=== PATIENT | female | born 1935 | race Caucasian/White ===

== ENCOUNTER 2019-04-20 10:09 | Inpatient (IN) | payer MEDICARE, BC ==
[2019-04-20] MEDS ORDERED: Sodium Chloride 0.9% 10 ML Syringe FLUSH PRN (10:13)
--- NOTE | 2019-04-20 10:49 | CT ---
[id number] CT/CT Head Stroke Protocol EXAM: NONCONTRAST HEAD CT INDICATION: Stroke protocol, fall. COMPARISON: December 22, 2015. DISCUSSION: There is mild to moderate generalized atrophy. Mild multifocal white matter hypoattenuation is nonspecific, but generally ascribed to chronic small vessel ischemia. No mass effect or midline shift. No acute hemorrhage or extra-axial fluid collection. No acute territorial infarct is identified. A limited look at the orbits and paranasal sinuses is unremarkable. IMPRESSION: 1. No acute findings. Guy Cornelius MD 04/20/19 1048 Thank you for allowing us to participate in the care of your patient.
--- NOTE | 2019-04-20 10:55 | EDM.PDOC ---
ED HPI GENERAL MEDICAL PROBLEM - General Stated Complaint: code green Time Seen by Provider: 04/20/19 10:09 Source of Information: Reports: Patient History Limitations: Reports: No Limitations - History of Present Illness INITIAL COMMENTS - FREE TEXT/NARRATIVE: Pt. presents to ER via EMS. Pt. was found lying prone on the floor of her house this AM. Son states that he was unable to reach his mother by phone this AM. He lives in [place] and was bringing her groceries. Pt. states that she fell this AM. She claims that she was up ambulating and had breakfast this AM, but is confused about how she got to the floor. She was not aware that she was picked up off the floor by EMS. She was made a "code green" by EMS due to confusion and slurred speech. Son states that the patient has been having problems with increased confusion and cognitive delay. Pt. thinks that it is 1995. She also has been confused recently according to son. She said on Tuesday that she was going to work. She has not worked for several years. Son is working on getting her into a alf. Pt. lives alone in a house. She has several dogs and there is a large amount of dog excrement and urine in the floor. Pt. is noted to have what appears to be urine fabian to her face and legs. Pt. complained of neck pain to EMS. Her only other complaint is that of severe pruritus which she has been dealing with for some time. Again, unknown when last known well is. She relates that she was up walking around this AM, but she is quite confused, so this information is possibly inaccurate. She claims she fell a half hour before her son found her. She denies any chest pain. No shortness of breath. No numbness/tingling in extremities. Denies any abdominal pain, nausea or vomiting. No headache. Onset: Today Onset Date: 04/20/19 Location: Reports: Neck Associated Symptoms: Reports: Rash Bilateral Shoulder Pain Score (Numeric/FACES): 4 - Related Data Allergies Allergy/AdvReac Type Severity Reaction Status Date / Time No Known Allergies Allergy Verified 03/15/16 06:38 Home Meds: Home Meds predniSONE [Prednisone] 5 mg DAILY 05/20/15 [History] Aspirin 81 mg PO DAILY 04/20/19 [History] amLODIPine [Norvasc] 5 mg PO DAILY 04/20/19 [History] Past Medical History HEENT History: Reports: Impaired Vision, Other (See Below) Other HEENT History: Wears glasses. Cardiovascular History: Reports: Blood Clots/VTE/DVT, Hypertension, Syncope Respiratory History: Reports: PE Gastrointestinal History: Reports: Chronic Constipation Musculoskeletal History: Reports: Arthritis Hematologic History: Reports: Other (See Below) Other Hematologic History: blood clots to legs - Past Surgical History Musculoskeletal Surgical History: Reports: Hip Replacement, Joint Replacement, Knee Replacement Social & Family History - Family History Family Medical History: Noncontributory - Caffeine Use Caffeine Use: Reports: Coffee, Soda Other Caffeine Use: coke Caffeine Use Comment: Patient states very little ED ROS GENERAL - Review of Systems Review Of Systems: See Below Constitutional: Reports: Weakness, Fatigue HEENT: Reports: No Symptoms Respiratory: Reports: No Symptoms Cardiovascular: Reports: No Symptoms Endocrine: Reports: No Symptoms GI/Abdominal: Reports: No Symptoms : Reports: No Symptoms Musculoskeletal: Reports: Neck Pain Skin: Reports: Pruritis, Rash, Erythema Neurological: Reports: No Symptoms Psychiatric: Reports: No Symptoms Hematologic/Lymphatic: Reports: No Symptoms Immunologic: Reports: No Symptoms ED EXAM, GENERAL - Physical Exam Exam: See Below Exam Limited By: No Limitations General Appearance: Alert, WD/WN, No Apparent Distress Eye Exam: Bilateral Eye: EOMI, Normal Fundi, Normal Inspection, PERRL Nose: Normal Inspection, Normal Mucosa, No Blood Throat/Mouth: Normal Inspection, Normal Lips, Normal Teeth, Normal Gums, Normal Oropharynx, Normal Voice, No Airway Compromise Head: Atraumatic, Normocephalic Neck: Normal Inspection, Supple, Non-Tender, Full Range of Motion Respiratory/Chest: No Respiratory Distress, Lungs Clear, Normal Breath Sounds, No Accessory Muscle Use, Chest Non-Tender Cardiovascular: Normal Peripheral Pulses, Regular Rate, Rhythm, No Edema, No Gallop, No JVD, No Murmur, No Rub Peripheral Pulses: 3+: Posterior Tibial (L), Posterior Tibial (R), 4+: Radial (R ) GI/Abdominal: Normal Bowel Sounds, Soft, Non-Tender, No Organomegaly, No Distention, No Abnormal Bruit, No Mass, Pelvis Stable (Female) Exam: Deferred Rectal (Female) Exam: Deferred Back Exam: Normal Inspection, Full Range of Motion Extremities: Normal Inspection, Normal Range of Motion, Non-Tender, No Pedal Edema, Normal Capillary Refill Neurological: Alert, Oriented, CN II-XII Intact, Normal Cognition, Normal Gait, Normal Reflexes, No Motor/Sensory Deficits Psychiatric: Normal Affect, Normal Mood Skin Exam: Warm, Dry, Intact, Normal Color, Erythema, Other (Appears to be eczema to lower extremities. There is some erythema to R lower extremity. Unknown if this is early cellulitis vs. urine fabian. ) Lymphatic: No Adenopathy EKG INTERPRETATION Rhythm: NSR [place]: Normal P-Wave: Present QRS: Normal ST-T: Normal QT: Normal Course - Vital Signs Last Recorded V/S: Last Vital Signs Temp 36.3 C 04/20/19 10:10 Pulse 86 04/20/19 10:10 Resp 18 04/20/19 10:10 BP 141/90 H 04/20/19 10:10 Pulse Ox 96 04/20/19 10:10 - Orders/Labs/Meds Orders: Active Orders 24 hr Category Date Time Status Patient Status [ADT] Routine ADT 04/20/19 11:48 Ordered EKG Documentation Completion [RC] STAT Care 04/20/19 10:13 Active Valerio Catheter Insertion [Insert Urinary Catheter] [OM. Care 04/20/19 11:15 Ordered PC] Q24H Urinary Catheter Assessment [RC] ASDIRECTED Care 04/20/19 11:05 Active CULTURE BLOOD [BC] Stat Lab 04/20/19 10:32 Received CULTURE BLOOD [BC] Stat Lab 04/20/19 10:47 Received Sodium Chloride 0.9% [Normal Saline] 1,000 ml Med 04/20/19 11:15 Active IV ASDIRECTED Sodium Chloride 0.9% [Saline Flush] Med 04/20/19 10:13 Active 10 ml FLUSH ASDIRECTED PRN Blood Culture x2 Reflex Set [OM.PC] Stat Oth 04/20/19 10:14 Ordered Peripheral IV Insertion Adult [OM.PC] Routine Oth 04/20/19 10:14 Ordered Medication Orders Sodium Chloride (Normal Saline) 1,000 mls @ 150 mls/hr IV ASDIRECTED VAL Last Admin: 04/20/19 11:12 Dose: 150 mls/hr Sodium Chloride (Saline Flush) 10 ml FLUSH ASDIRECTED PRN PRN Reason: Keep Vein Open Labs: Laboratory Tests 04/20/19 04/20/19 04/20/19 Range/Units 10:32 10:32 10:32 WBC 7.1 (4.0-10.0) x10^3/uL RBC 4.14 (4.00-5.50) x10^6/uL Hgb 11.7 L (12.0-16.0) g/dL Hct 35.3 (33.0-47.0) % MCV 85.3 D (78.0-93.0) fL MCH 28.3 (26.0-32.0) pg MCHC 33.1 (32.0-36.0) g/dL RDW Coeff of Sonny 12.8 (10.0-15.0) % Plt Count 413 H D (130-400) x10^3/uL Neut % (Auto) 72.2 (50.0-80.0) % Lymph % (Auto) 10.8 L (25.0-50.0) % [place] % (Auto) 11.9 H (2.0-11.0) % Eos % (Auto) 5.0 H (0.0-4.0) % Baso % (Auto) 0.1 L (0.2-1.2) % PT 10.9 (10.0-12.8) SEC INR 1.0 L (2.0-3.5) Sodium 141 (69-191) mmol/L Potassium 3.5 (1.5-9.9) mmol/L Chloride 104 (54-184) mmol/L Carbon Dioxide 23 (21-32) mmol/L Anion Gap 17.5 (10-20) mmol/L BUN 12 (7-18) mg/dL Creatinine 0.8 (0.55-1.02) mg/dL Est Cr Clr Drug Dosing TNP Estimated GFR (MDRD) > 60 Glucose 96 (74-106) mg/dL Lactic Acid (0.4-2.0) mmol/L Calcium 8.6 (8.5-10.1) mg/dL Corrected Calcium 9.64 (8.5-10.1) mg/dL Phosphorus 3.6 (2.6-4.7) mg/dL Magnesium 1.8 (1.8-2.4) mg/dL Total Bilirubin 0.9 (0.2-1.0) mg/dL AST 46 H (15-37) U/L ALT 21 (14-59) U/L Alkaline Phosphatase 104 (46-116) U/L Creatine Kinase (26-192) U/L POC Troponin I (0.00-0.08) ng/mL C-Reactive Protein 12.1 H (<=0.9) mg/dL Total Protein 5.8 L (6.4-8.2) g/dL Albumin 2.7 L (3.4-5.0) g/dL Globulin 3.1 Albumin/Globulin Ratio 0.87 TSH, Ultra Sensitive 2.955 (0.358-3.74) uIU/mL Urine Color (YELLOW) Urine Appearance (CLEAR) Urine pH (5.0-8.0) Ur Specific [place] Urine Protein (NEGATIVE) mg/dL Urine Glucose (UA) (NEGATIVE) mg/dL Urine Ketones (NEGATIVE) mg/dL Urine Occult Blood (NEGATIVE) Urine Nitrite (NEGATIVE) Urine Bilirubin (NEGATIVE) Urine Urobilinogen (0.2) EU/dL Ur Leukocyte Esterase (NEGATIVE) Urine RBC (NOT SEEN) /HPF Urine WBC (NOT SEEN) /HPF Ur Squamous Epith Cells (NEGATIVE) /HPF Urine Bacteria (NEGATIVE) /HPF Urine Mucus (NEGATIVE) /LPF Urine Yeast (Budding) 04/20/19 04/20/19 04/20/19 Range/Units 10:32 10:32 10:38 WBC (4.0-10.0) x10^3/uL RBC (4.00-5.50) x10^6/uL Hgb (12.0-16.0) g/dL Hct (33.0-47.0) % MCV (78.0-93.0) fL MCH (26.0-32.0) pg MCHC (32.0-36.0) g/dL RDW Coeff of Sonny (10.0-15.0) % Plt Count (130-400) x10^3/uL Neut % (Auto) (50.0-80.0) % Lymph % (Auto) (25.0-50.0) % [place] % (Auto) (2.0-11.0) % Eos % (Auto) (0.0-4.0) % Baso % (Auto) (0.2-1.2) % PT (10.0-12.8) SEC INR (2.0-3.5) Sodium (69-191) mmol/L Potassium (1.5-9.9) mmol/L Chloride (54-184) mmol/L Carbon Dioxide (21-32) mmol/L Anion Gap (10-20) mmol/L BUN (7-18) mg/dL Creatinine (0.55-1.02) mg/dL Est Cr Clr Drug Dosing Estimated GFR (MDRD) Glucose (74-106) mg/dL Lactic Acid 1.3 (0.4-2.0) mmol/L Calcium (8.5-10.1) mg/dL Corrected Calcium (8.5-10.1) mg/dL Phosphorus (2.6-4.7) mg/dL Magnesium (1.8-2.4) mg/dL Total Bilirubin (0.2-1.0) mg/dL AST (15-37) U/L ALT (14-59) U/L Alkaline Phosphatase (46-116) U/L Creatine Kinase 874 H* (26-192) U/L POC Troponin I 0.02 (0.00-0.08) ng/mL C-Reactive Protein (<=0.9) mg/dL Total Protein (6.4-8.2) g/dL Albumin (3.4-5.0) g/dL Globulin Albumin/Globulin Ratio TSH, Ultra Sensitive (0.358-3.74) uIU/mL Urine Color (YELLOW) Urine Appearance (CLEAR) Urine pH (5.0-8.0) Ur Specific [place] Urine Protein (NEGATIVE) mg/dL Urine Glucose (UA) (NEGATIVE) mg/dL Urine Ketones (NEGATIVE) mg/dL Urine Occult Blood (NEGATIVE) Urine Nitrite (NEGATIVE) Urine Bilirubin (NEGATIVE) Urine Urobilinogen (0.2) EU/dL Ur Leukocyte Esterase (NEGATIVE) Urine RBC (NOT SEEN) /HPF Urine WBC (NOT SEEN) /HPF Ur Squamous Epith Cells (NEGATIVE) /HPF Urine Bacteria (NEGATIVE) /HPF Urine Mucus (NEGATIVE) /LPF Urine Yeast (Budding) 04/20/19 Range/Units 11:00 WBC (4.0-10.0) x10^3/uL RBC (4.00-5.50) x10^6/uL Hgb (12.0-16.0) g/dL Hct (33.0-47.0) % MCV (78.0-93.0) fL MCH (26.0-32.0) pg MCHC (32.0-36.0) g/dL RDW Coeff of Sonny (10.0-15.0) % Plt Count (130-400) x10^3/uL Neut % (Auto) (50.0-80.0) % Lymph % (Auto) (25.0-50.0) % [place] % (Auto) (2.0-11.0) % Eos % (Auto) (0.0-4.0) % Baso % (Auto) (0.2-1.2) % PT (10.0-12.8) SEC INR (2.0-3.5) Sodium (69-191) mmol/L Potassium (1.5-9.9) mmol/L Chloride (54-184) mmol/L Carbon Dioxide (21-32) mmol/L Anion Gap (10-20) mmol/L BUN (7-18) mg/dL Creatinine (0.55-1.02) mg/dL Est Cr Clr Drug Dosing Estimated GFR (MDRD) Glucose (74-106) mg/dL Lactic Acid (0.4-2.0) mmol/L Calcium (8.5-10.1) mg/dL Corrected Calcium (8.5-10.1) mg/dL Phosphorus (2.6-4.7) mg/dL Magnesium (1.8-2.4) mg/dL Total Bilirubin (0.2-1.0) mg/dL AST (15-37) U/L ALT (14-59) U/L Alkaline Phosphatase (46-116) U/L Creatine Kinase (26-192) U/L POC Troponin I (0.00-0.08) ng/mL C-Reactive Protein (<=0.9) mg/dL Total Protein (6.4-8.2) g/dL Albumin (3.4-5.0) g/dL Globulin Albumin/Globulin Ratio TSH, Ultra Sensitive (0.358-3.74) uIU/mL Urine Color Dark yellow H (YELLOW) Urine Appearance Clear (CLEAR) Urine pH 5.5 (5.0-8.0) Ur Specific [place] 1.025 Urine Protein Trace H (NEGATIVE) mg/dL Urine Glucose (UA) Negative (NEGATIVE) mg/dL Urine Ketones 40 H (NEGATIVE) mg/dL Urine Occult Blood Negative (NEGATIVE) Urine Nitrite Negative (NEGATIVE) Urine Bilirubin Small H (NEGATIVE) Urine Urobilinogen 2.0 H (0.2) EU/dL Ur Leukocyte Esterase Negative (NEGATIVE) Urine RBC 0-5 (NOT SEEN) /HPF Urine WBC 0-5 (NOT SEEN) /HPF Ur Squamous Epith Cells Rare (NEGATIVE) /HPF Urine Bacteria Not seen (NEGATIVE) /HPF Urine Mucus Rare H (NEGATIVE) /LPF Urine Yeast (Budding) Few Meds: Medications Generic Name Dose Route Start Last Admin Trade Name Freq PRN Reason Stop Dose Admin Sodium Chloride 1,000 mls @ 150 mls/hr 04/20/19 11:15 04/20/19 11:12 Normal Saline IV 150 mls/hr ASDIRECTED VAL Administration Sodium Chloride 10 ml 04/20/19 10:13 Saline Flush FLUSH ASDIRECTED PRN Keep Vein Open Discontinued Medications Generic Name Dose Route Start Last Admin Trade Name Freq PRN Reason Stop Dose Admin Cefazolin Sodium 1 gm 04/20/19 11:26 Ancef IVPUSH 04/20/19 11:27 ONETIME ONE - Radiology Interpretation Free Text/Narrative:: CT brain/c-spine are negative Chest x-ray is negative Departure - Departure Time of Disposition: 11:52 Disposition: Admitted As Inpatient 67 Clinical Impression: Cellulitis, Rhabdomyolysis, Confusion - Discharge Information Referrals: Senia Silvestre, [Primary Care Provider] - - My Orders Last 24 Hours: My Active Orders 04/20/19 10:13 EKG Documentation Completion [RC] STAT Sodium Chloride 0.9% [Saline Flush] 10 ml FLUSH ASDIRECTED PRN 04/20/19 10:14 Blood Culture x2 Reflex Set [OM.PC] Stat Peripheral IV Insertion Adult [OM.PC] Routine 04/20/19 10:32 CULTURE BLOOD [BC] Stat 04/20/19 10:47 CULTURE BLOOD [BC] Stat 04/20/19 11:05 Urinary Catheter Assessment [RC] ASDIRECTED 04/20/19 11:15 Valerio Catheter Insertion [Insert Urinary Catheter] [OM.PC] Q24H Sodium Chloride 0.9% [Normal Saline] 1,000 ml IV ASDIRECTED 04/20/19 11:48 Patient Status [ADT] Routine - Assessment/Plan Last 24 Hours: My Active Orders 04/20/19 10:13 EKG Documentation Completion [RC] STAT Sodium Chloride 0.9% [Saline Flush] 10 ml FLUSH ASDIRECTED PRN 04/20/19 10:14 Blood Culture x2 Reflex Set [OM.PC] Stat Peripheral IV Insertion Adult [OM.PC] Routine 04/20/19 10:32 CULTURE BLOOD [BC] Stat 04/20/19 10:47 CULTURE BLOOD [BC] Stat 04/20/19 11:05 Urinary Catheter Assessment [RC] ASDIRECTED 04/20/19 11:15 Valerio Catheter Insertion [Insert Urinary Catheter] [OM.PC] Q24H Sodium Chloride 0.9% [Normal Saline] 1,000 ml IV ASDIRECTED 04/20/19 11:48 Patient Status [ADT] Routine Plan: Pt. will be admitted acutely. She was given ancef 1 gm IV for cellulitis. She has an elevated CPK. She was started on Normal Saline at 150ml/hr. I spoke with Dr. Silvestre/Jonathan Nesbitt. Jonathan will be admitting the patient. Pt. is DNR/DNI.
--- NOTE | 2019-04-20 10:59 | CT ---
[id number] CT/CT Cervical Spine WO IV EXAM: NONCONTRAST CERVICAL SPINE CT INDICATION: FALL. COMPARISON: None. DISCUSSION: 3 mm spondylolisthesis C4-C5 C7-T1 and T2-T3. No fracture or suspicious osseous lesion is identified. There is at least moderate degenerative disc disease and facet arthropathy throughout the cervical spine with significant central stenosis suggested at C4-C5 which could be further evaluated with CT. IMPRESSION: 1. No evidence of acute cervical spine fracture or subluxation. Guy Cornelius MD 04/20/19 1058 Thank you for allowing us to participate in the care of your patient.
--- NOTE | 2019-04-20 11:11 | CR ---
[id number] RAD/RAD Chest PA or AP 1V EXAM: RAD Chest PA or AP 1V INDICATION: CONFUSION, WEAKNESS. COMPARISON: None. DISCUSSION: Cardiomediastinal silhouette is normal in size and contour. COPD. No infiltrate, effusion, pneumothorax, or edema. IMPRESSION: No acute findings. Jean Fenton MD 04/20/19 4060 Thank you for allowing us to participate in the care of your patient.
[2019-04-20] MEDS: Sodium Chloride 0.9% 1,000 ML IV SCH ×2 (11:12→17:56)
[2019-04-20 11:17] LABS: CHLORIDE,CL 104 mmol/L (54-184); SODIUM,NA 141 mmol/L (69-191)
[2019-04-20 11:18] LABS: ANION GAP 17.5 mmol/L (10-20)
[2019-04-20] MEDS ORDERED: ceFAZolin 1 GM Vial IVPUSH ONE (11:26)
[2019-04-20] MEDS ORDERED: Acetaminophen 325 MG Tab PO PRN (13:14)
[2019-04-20] MEDS ORDERED: methylPREDNISolone Sodium Succinate 125 MG/2 ML SDV IVPUSH ONE (13:30)
--- NOTE | 2019-04-20 13:41 | PCM.HP.2 ---
H&P History of Present Illness - General Date of Service: 04/20/19 Admit Problem/Dx: Admission Diagnosis/Problem Admission Diagnosis/Problem Cellulitis, Right Lower Extremity Rhabdo Dehydration Weakness Deconditioning HTN RA Source of Information: EMS Notes Reviewed, Old Records, RN, RN Notes Reviewed History Limitations: Reports: Altered Mental Status (confusion) - History of Present Illness Initial Comments - Free Text/Narative: This is a 83-year-old female patient that was brought to the emergency room at [facility] in [place] per EMS after she was found laying on her floor in her home by her son. The patient does live alone. The patient apparently was laying in urine and dog feces. It is unknown how long the patient had been laying on the floor. The patient has denied falling. The patient states that she did not hit her head or lose any consciousness. The patient's initial workup in the emergency room showed an elevated CK of over 800 as well as significant cellulitis to the right lower extremity. The patient was given a gram of Ancef in the emergency room and started on IV fluids. The patient is a poor historian due to her confusion and undiagnosed dementia. The patient has a past medical history significant for hypertension and rheumatoid arthritis but she is currently being treated for. The patient is followed in clinic at [facility]. Her last visit with her PCP was December 28, 2018. Onset of Symptoms: Reports: Unknown/Unsure Bilateral Shoulder Pain Score (Numeric/FACES): 4 - Related Data Allergies/Adverse Reactions: Allergies Allergy/AdvReac Type Severity Reaction Status Date / Time No Known Allergies Allergy Verified 04/20/19 12:30 Home Medications: Home Meds predniSONE [Prednisone] 5 mg DAILY 05/20/15 [History] Aspirin 81 mg PO DAILY 04/20/19 [History] amLODIPine [Norvasc] 5 mg PO DAILY 04/20/19 [History] Past Medical History HEENT History: Reports: Impaired Vision, Other (See Below) Other HEENT History: Wears glasses. 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: Musculoskeletal History: Reports: Arthritis Hematologic History: Reports: Other (See Below) Other Hematologic History: blood clots to legs - Infectious Disease History Infectious Disease History: Reports: MRSA, Shingles - Past Surgical History Musculoskeletal Surgical History: Reports: Hip Replacement, Joint Replacement, Knee Replacement Social & Family History - Family History Family Medical History: Noncontributory - Tobacco Use Smoking Status *Q: Never Smoker Second Hand Smoke Exposure: No - Caffeine Use Caffeine Use: Reports: Coffee Other Caffeine Use: coke Caffeine Use Comment: Patient states very little - Recreational Drug Use Recreational Drug Use: No H&P Review of Systems - Review of Systems: Review Of Systems: Unable To Obtain (Patient responds "no" to any question) Free Text/Narrative: Part of the review of systems is obtained from the nursing staff. The nursing staff state that the patient has not been complaining of any pain. The patient has not had a fever upon arrival and her vital signs have remained stable. The nursing staff state the patient has mentioned some itching to the lower right extremity. Exam - Exam Exam: See Below - Vital Signs Vital Signs: Last Vital Signs Temp 97.4 F 04/20/19 10:10 Pulse 82 04/20/19 11:05 Resp 16 04/20/19 11:05 BP 143/89 H 04/20/19 11:05 Pulse Ox 96 04/20/19 11:05 Weight: 143 lb 6 oz - Exam Quality Assessment: Urinary Catheter, DVT Prophylaxis, Skin Breakdown General: Alert, Cooperative. No: Oriented Lungs: Clear to Auscultation, Normal Respiratory Effort Cardiovascular: Regular Rate, Regular Rhythm GI/Abdominal Exam: Soft, Non-Tender, Abnormal Bowel Sounds (Hypoactive) Extremities: Pedal Edema, Slow Capillary Refill, Limited Range of Motion, Increased Warmth, Redness, Other (+2 dependent pitting edema RLE; cellulitis has a general ooze with blistering from the right knee down to mid right foot) Peripheral Pulses: 2+: Radial (L), Radial (R) Skin: Warm, Wound Neuro Extensive - Mental Status: Alert. No: Oriented x3 - Patient Data Lab Results Last 24 hrs: Laboratory Results - last 24 hr 04/20/19 04/20/19 04/20/19 Range/Units 10:32 10:32 10:32 WBC 7.1 (4.0-10.0) x10^3/uL RBC 4.14 (4.00-5.50) x10^6/uL Hgb 11.7 L (12.0-16.0) g/dL Hct 35.3 (33.0-47.0) % MCV 85.3 D (78.0-93.0) fL MCH 28.3 (26.0-32.0) pg MCHC 33.1 (32.0-36.0) g/dL RDW Coeff of Sonny 12.8 (10.0-15.0) % Plt Count 413 H D (130-400) x10^3/uL Neut % (Auto) 72.2 (50.0-80.0) % Lymph % (Auto) 10.8 L (25.0-50.0) % [place] % (Auto) 11.9 H (2.0-11.0) % Eos % (Auto) 5.0 H (0.0-4.0) % Baso % (Auto) 0.1 L (0.2-1.2) % PT 10.9 (10.0-12.8) SEC INR 1.0 L (2.0-3.5) Sodium 141 (69-191) mmol/L Potassium 3.5 (1.5-9.9) mmol/L Chloride 104 (54-184) mmol/L Carbon Dioxide 23 (21-32) mmol/L Anion Gap 17.5 (10-20) mmol/L BUN 12 (7-18) mg/dL Creatinine 0.8 (0.55-1.02) mg/dL Est Cr Clr Drug Dosing TNP Estimated GFR (MDRD) > 60 Glucose 96 (74-106) mg/dL Lactic Acid (0.4-2.0) mmol/L Calcium 8.6 (8.5-10.1) mg/dL Corrected Calcium 9.64 (8.5-10.1) mg/dL Phosphorus 3.6 (2.6-4.7) mg/dL Magnesium 1.8 (1.8-2.4) mg/dL Total Bilirubin 0.9 (0.2-1.0) mg/dL AST 46 H (15-37) U/L ALT 21 (14-59) U/L Alkaline Phosphatase 104 (46-116) U/L Creatine Kinase (26-192) U/L POC Troponin I (0.00-0.08) ng/mL C-Reactive Protein 12.1 H (<=0.9) mg/dL Total Protein 5.8 L (6.4-8.2) g/dL Albumin 2.7 L (3.4-5.0) g/dL Globulin 3.1 Albumin/Globulin Ratio 0.87 TSH, Ultra Sensitive 2.955 (0.358-3.74) uIU/mL Urine Color (YELLOW) Urine Appearance (CLEAR) Urine pH (5.0-8.0) Ur Specific [place] Urine Protein (NEGATIVE) mg/dL Urine Glucose (UA) (NEGATIVE) mg/dL Urine Ketones (NEGATIVE) mg/dL Urine Occult Blood (NEGATIVE) Urine Nitrite (NEGATIVE) Urine Bilirubin (NEGATIVE) Urine Urobilinogen (0.2) EU/dL Ur Leukocyte Esterase (NEGATIVE) Urine RBC (NOT SEEN) /HPF Urine WBC (NOT SEEN) /HPF Ur Squamous Epith Cells (NEGATIVE) /HPF Urine Bacteria (NEGATIVE) /HPF Urine Mucus (NEGATIVE) /LPF Urine Yeast (Budding) 04/20/19 04/20/19 04/20/19 Range/Units 10:32 10:32 10:38 WBC (4.0-10.0) x10^3/uL RBC (4.00-5.50) x10^6/uL Hgb (12.0-16.0) g/dL Hct (33.0-47.0) % MCV (78.0-93.0) fL MCH (26.0-32.0) pg MCHC (32.0-36.0) g/dL RDW Coeff of Sonny (10.0-15.0) % Plt Count (130-400) x10^3/uL Neut % (Auto) (50.0-80.0) % Lymph % (Auto) (25.0-50.0) % [place] % (Auto) (2.0-11.0) % Eos % (Auto) (0.0-4.0) % Baso % (Auto) (0.2-1.2) % PT (10.0-12.8) SEC INR (2.0-3.5) Sodium (69-191) mmol/L Potassium (1.5-9.9) mmol/L Chloride (54-184) mmol/L Carbon Dioxide (21-32) mmol/L Anion Gap (10-20) mmol/L BUN (7-18) mg/dL Creatinine (0.55-1.02) mg/dL Est Cr Clr Drug Dosing Estimated GFR (MDRD) Glucose (74-106) mg/dL Lactic Acid 1.3 (0.4-2.0) mmol/L Calcium (8.5-10.1) mg/dL Corrected Calcium (8.5-10.1) mg/dL Phosphorus (2.6-4.7) mg/dL Magnesium (1.8-2.4) mg/dL Total Bilirubin (0.2-1.0) mg/dL AST (15-37) U/L ALT (14-59) U/L Alkaline Phosphatase (46-116) U/L Creatine Kinase 874 H* (26-192) U/L POC Troponin I 0.02 (0.00-0.08) ng/mL C-Reactive Protein (<=0.9) mg/dL Total Protein (6.4-8.2) g/dL Albumin (3.4-5.0) g/dL Globulin Albumin/Globulin Ratio TSH, Ultra Sensitive (0.358-3.74) uIU/mL Urine Color (YELLOW) Urine Appearance (CLEAR) Urine pH (5.0-8.0) Ur Specific [place] Urine Protein (NEGATIVE) mg/dL Urine Glucose (UA) (NEGATIVE) mg/dL Urine Ketones (NEGATIVE) mg/dL Urine Occult Blood (NEGATIVE) Urine Nitrite (NEGATIVE) Urine Bilirubin (NEGATIVE) Urine Urobilinogen (0.2) EU/dL Ur Leukocyte Esterase (NEGATIVE) Urine RBC (NOT SEEN) /HPF Urine WBC (NOT SEEN) /HPF Ur Squamous Epith Cells (NEGATIVE) /HPF Urine Bacteria (NEGATIVE) /HPF Urine Mucus (NEGATIVE) /LPF Urine Yeast (Budding) 04/20/19 Range/Units 11:00 WBC (4.0-10.0) x10^3/uL RBC (4.00-5.50) x10^6/uL Hgb (12.0-16.0) g/dL Hct (33.0-47.0) % MCV (78.0-93.0) fL MCH (26.0-32.0) pg MCHC (32.0-36.0) g/dL RDW Coeff of Sonny (10.0-15.0) % Plt Count (130-400) x10^3/uL Neut % (Auto) (50.0-80.0) % Lymph % (Auto) (25.0-50.0) % [place] % (Auto) (2.0-11.0) % Eos % (Auto) (0.0-4.0) % Baso % (Auto) (0.2-1.2) % PT (10.0-12.8) SEC INR (2.0-3.5) Sodium (69-191) mmol/L Potassium (1.5-9.9) mmol/L Chloride (54-184) mmol/L Carbon Dioxide (21-32) mmol/L Anion Gap (10-20) mmol/L BUN (7-18) mg/dL Creatinine (0.55-1.02) mg/dL Est Cr Clr Drug Dosing Estimated GFR (MDRD) Glucose (74-106) mg/dL Lactic Acid (0.4-2.0) mmol/L Calcium (8.5-10.1) mg/dL Corrected Calcium (8.5-10.1) mg/dL Phosphorus (2.6-4.7) mg/dL Magnesium (1.8-2.4) mg/dL Total Bilirubin (0.2-1.0) mg/dL AST (15-37) U/L ALT (14-59) U/L Alkaline Phosphatase (46-116) U/L Creatine Kinase (26-192) U/L POC Troponin I (0.00-0.08) ng/mL C-Reactive Protein (<=0.9) mg/dL Total Protein (6.4-8.2) g/dL Albumin (3.4-5.0) g/dL Globulin Albumin/Globulin Ratio TSH, Ultra Sensitive (0.358-3.74) uIU/mL Urine Color Dark yellow H (YELLOW) Urine Appearance Clear (CLEAR) Urine pH 5.5 (5.0-8.0) Ur Specific [place] 1.025 Urine Protein Trace H (NEGATIVE) mg/dL Urine Glucose (UA) Negative (NEGATIVE) mg/dL Urine Ketones 40 H (NEGATIVE) mg/dL Urine Occult Blood Negative (NEGATIVE) Urine Nitrite Negative (NEGATIVE) Urine Bilirubin Small H (NEGATIVE) Urine Urobilinogen 2.0 H (0.2) EU/dL Ur Leukocyte Esterase Negative (NEGATIVE) Urine RBC 0-5 (NOT SEEN) /HPF Urine WBC 0-5 (NOT SEEN) /HPF Ur Squamous Epith Cells Rare (NEGATIVE) /HPF Urine Bacteria Not seen (NEGATIVE) /HPF Urine Mucus Rare H (NEGATIVE) /LPF Urine Yeast (Budding) Few Result Diagrams: 04/20/19 10:32 04/20/19 10:32 *Q Meaningful Use (ADM) - VTE *Q VTE Mechanical Contraindications *Q: At Risk for Falls - Problem List (1) Cellulitis SNOMED Code(s): 800698359 ICD Code: L03.90 - CELLULITIS, UNSPECIFIED Status: Acute Priority: High Current Visit: Yes Onset Date: ~04/20/19 Qualifiers: Site of cellulitis: extremity Site of cellulitis of extremity: lower extremity Laterality: right Qualified Code(s): L03.115 - Cellulitis of right lower limb (2) Confusion SNOMED Code(s): 816422317 ICD Code: R41.0 - DISORIENTATION, UNSPECIFIED Status: Chronic Priority: Medium Current Visit: Yes (3) Rhabdomyolysis SNOMED Code(s): 292292614 ICD Code: M62.82 - RHABDOMYOLYSIS Status: Acute Priority: High Current Visit: Yes Qualifiers: Rhabdomyolysis type: non-traumatic Qualified Code(s): M62.82 - Rhabdomyolysis (4) Essential hypertension SNOMED Code(s): 03320256 ICD Code: I10 - ESSENTIAL (PRIMARY) HYPERTENSION Status: Chronic Priority : Medium Current Visit: No (5) Rheumatoid arthritis SNOMED Code(s): 06856850 ICD Code: M06.9 - RHEUMATOID ARTHRITIS, UNSPECIFIED Status: Chronic Priority: Medium Current Visit: No Qualifiers: Rheumatoid arthritis location: multiple sites Rheumatoid factor presence: with rheumatoid factor Qualified Code(s): M05.79 - Rheumatoid arthritis with rheumatoid factor of multiple sites without organ or systems involvement (6) History of DVT (deep vein thrombosis) SNOMED Code(s): 095356908 ICD Code: Z86.718 - PERSONAL HISTORY OF OTHER VENOUS THROMBOSIS AND EMBOLISM Status: Chronic Priority: Low Current Visit: No (7) History of shingles SNOMED Code(s): 681441578517991 ICD Code: Z86.19 - PERSONAL HISTORY OF OTHER INFECTIOUS AND PARASITIC DISEASES Status: Chronic Priority: Low Current Visit: No (8) Osteopenia SNOMED Code(s): 912051176 ICD Code: M85.80 - OTH DISRD OF BONE DENSITY AND STRUCTURE, UNSPECIFIED SITE Status: Chronic Priority: Low Current Visit: No Qualifiers: Osteopenia location: multiple sites Qualified Code(s): M85.89 - Other specified disorders of bone density and structure, multiple sites (9) Cognitive impairment SNOMED Code(s): 619442956 ICD Code: R41.89 - OTH SYMPTOMS AND SIGNS W COGNITIVE FUNCTIONS AND AWARENESS Status: Chronic Priority: Medium Current Visit: Yes Problem List Initiated/Reviewed/Updated: Yes Orders Last 24hrs: Active Orders 24 hr Category Date Time Status Patient Status [ADT] Routine ADT 04/20/19 13:14 Active Ambulate [RC] Care 04/20/19 13:14 Active Valerio Catheter Insertion [Insert Urinary Catheter] [OM. Care 04/20/19 11:15 Ordered PC] Q24H Influenza Vaccine Charge [RC] .DISCHARGE Care 04/20/19 12:28 Active Intake and Output [RC] Care 04/20/19 12:32 Active Oxygen Therapy [RC] .PRN Care 04/20/19 12:32 Inactive Oxygen Therapy [RC] PRN Care 04/20/19 13:14 Active Up With Assistance [RC] Care 04/20/19 12:32 Active Urinary Catheter Assessment [RC] Care 04/20/19 11:05 Active Vital Signs [RC] 06,10,14,18,22,02 Care 04/20/19 12:32 Inactive Vital Signs [RC] 06,10,14,18,22,02 Care 04/20/19 13:14 Active Consult to Case Management/Breaker Operator [CONS] Cons 04/20/19 13:14 Active Routine OT Evaluation and Treatment [CONS] Routine Cons 04/20/19 13:14 Active PT Evaluation and Treatment [CONS] Routine Cons 04/20/19 13:14 Active Heart Healthy Diet [DIET] Diet 04/20/19 Breakfast Active BASIC METABOLIC PANEL,BMP [CHEM] Routine Lab 04/21/19 05:11 Ordered CBC WITH AUTO DIFF [HEME] Routine Lab 04/21/19 05:11 Ordered CREATINE KINASE,CK [CHEM] Routine Lab 04/21/19 05:11 Ordered CULTURE BLOOD [BC] Stat Lab 04/20/19 10:32 Received CULTURE BLOOD [BC] Stat Lab 04/20/19 10:47 Received MAGNESIUM [CHEM] Routine Lab 04/21/19 05:11 Ordered VANCOMYCIN TROUGH [CHEM] Timed Lab 04/23/19 13:30 Ordered Acetaminophen [Tylenol] Med 04/20/19 13:14 Active 650 mg PO Q4H PRN Aspirin Med 04/21/19 08:00 Active 81 mg PO DAILY Enoxaparin [Lovenox] Med 04/20/19 13:30 Active 40 mg SUBCUT DAILY Mineral Oil/Petrolatum,White [Minerin Creme] Med 04/20/19 13:19 Active 0 gm TOP BID PRN Pharmacy to Dose - Vancomycin Med 04/20/19 13:30 Pending 1 dose .XX ASDIRECTED Sodium Chloride 0.9% [Normal Saline] 1,000 ml Med 04/20/19 11:15 Active IV ASDIRECTED Sodium Chloride 0.9% [Saline Flush] Med 04/20/19 10:13 Active 10 ml FLUSH ASDIRECTED PRN Vancomycin 1 gm Med 04/20/19 14:00 Active Sodium Chloride 0.9% [Normal Saline (AdvBag)] 250 ml IV Q24H amLODIPine [Norvasc] Med 04/21/19 08:00 Active 5 mg PO DAILY methylPREDNISolone Sod Succ [Solu-MEDROL] Med 04/20/19 13:30 Once 125 mg IVPUSH ONETIME ONE predniSONE Med 04/21/19 08:00 Active 5 mg PO DAILY Blood Culture x2 Reflex Set [OM.PC] Stat Oth 04/20/19 10:14 Ordered Peripheral IV Insertion Adult [OM.PC] Routine Oth 04/20/19 10:14 Ordered Code Status [Resuscitation Status] Routine Resus Stat 04/20/19 12:32 Ordered Medication Orders Acetaminophen (Tylenol) 650 mg PO Q4H PRN PRN Reason: Pain (Mild 1-3)/fever Amlodipine Besylate (Norvasc) 5 mg PO DAILY VAL Aspirin (Aspirin) 81 mg PO DAILY VAL Enoxaparin Sodium (Lovenox) 40 mg SUBCUT DAILY VAL Sodium Chloride (Normal Saline) 1,000 mls @ 150 mls/hr IV ASDIRECTED VAL Last Admin: 04/20/19 11:12 Dose: 150 mls/hr Vancomycin HCl 1 gm/ Sodium (Chloride) 250 mls @ 250 mls/hr IV Q24H [facility] Methylprednisolone Sodium Succinate (Solu-Medrol) 125 mg IVPUSH ONETIME ONE Stop: 04/20/19 13:31 Mineral Oil/White Petrolatum (Minerin Creme) 0 gm TOP BID PRN PRN Reason: Dryness Prednisone (Prednisone) 5 mg PO DAILY [facility] Sodium Chloride (Saline Flush) 10 ml FLUSH ASDIRECTED PRN PRN Reason: Keep Vein Open Vancomycin HCl (Pharmacy To Dose - Vancomycin) 1 dose .XX ASDIRECTED [facility] Assessment/Plan Comment:: 1. Cellulitis of the right lower extremity 2. Rhabdomyolysis 3. Dehydration 4. Rheumatoid arthritis 5. Essential hypertension 6. History of DVT 7. History of shingles 8. Osteopenia 9. Cognitive impairment PLAN: Patient will be admitted to the acute care floor at [facility]. The patient will be started on vancomycin IV to be adjusted by pharmacy. We will start the patient on Lovenox also to be adjusted by pharmacy. We'll continue with normal saline at 125 mL per hour. Continue to monitor LIZZETH. We will have physical and occupational therapy see the patient. We have also consult case management for possible [place] [facility] placement. The patient is a code level II. The patient does not wish to be transferred to a high-level care should the need arise. I suspect the patient will be admitted for at least 3-4 days. Would like the right lower extremity to be open to air and keep elevated. Do not use any YVONNE hose on the right lower extremity. Valerio catheter will remain in place for strict I&O. We'll recheck labs in the a.m. NOTE: This patient was seen and examined by me as an [facility] provider - Mortality Measure Prognosis:: Good
[2019-04-20] MEDS: Enoxaparin 40 MG/0.4 ML Syringe SUBCUT SCH (14:06)
[2019-04-20] MEDS: Mineral Oil/Petrolatum,White Crm 454 GM Jar TOP PRN (17:56)
[2019-04-21] MEDS: Sodium Chloride 0.9% 1,000 ML IV SCH ×4 (00:32→21:01)
[2019-04-21] MEDS: amLODIPine 5 MG Tab PO SCH (07:19)
[2019-04-21] MEDS: Mineral Oil/Petrolatum,White Crm 454 GM Jar TOP PRN (07:19)
[2019-04-21] MEDS: Aspirin 81 MG Tab.Chew PO SCH (07:19)
[2019-04-21] MEDS: Enoxaparin 40 MG/0.4 ML Syringe SUBCUT SCH (07:19)
[2019-04-21] MEDS: predniSONE 5 MG Tab PO SCH (07:20)
[2019-04-21 07:56] LABS: CHLORIDE,CL 110 mmol/L (54-184); SODIUM,NA 144 mmol/L (69-191)
[2019-04-21 08:14] LABS: ANION GAP 19.7 mmol/L (10-20)
--- NOTE | 2019-04-21 11:37 | PCM.PN ---
- General Info Date of Service: 04/21/19 Admission Dx/Problem (Free Text): Admission Diagnosis/Problem Admission Diagnosis/Problem Cellulitis, Right Lower Extremity Rhabdo Dehydration Weakness Deconditioning HTN RA Subjective Update: Patient is pleasantly confused. She offers no specific complaints. She has a long-standing history of itching that family states has been a problem since childhood. Functional Status: Reports: Pain Controlled, Tolerating Diet, Urinating. Denies : Ambulating, New Symptoms Pain Score: 0 - Review of Systems General: Reports: Weakness. Denies: Fever, Chills Pulmonary: Denies: Shortness of Breath, Cough Cardiovascular: Denies: Chest Pain, Palpitations Gastrointestinal: Denies: Abdominal Pain, Nausea, Vomiting Skin: Reports: Pruritis Neurological: Reports: No Symptoms - Patient Data Vitals - Most Recent: Last Vital Signs Temp 97.7 F 04/21/19 05:08 Pulse 100 04/21/19 05:08 Resp 17 04/21/19 05:08 BP 110/63 04/21/19 07:19 Pulse Ox 93 L 04/21/19 05:08 Weight - Most Recent: 143 lb 6 oz I&O - Last 24 Hours: Intake & Output 04/20/19 04/21/19 04/21/19 22:59 06:59 14:59 Intake Total 850 2365 Output Total 400 300 Balance 450 2065 Lab Results Last 24 Hours: Laboratory Results - last 24 hr 04/21/19 04/21/19 Range/Units 07:30 07:30 WBC 7.5 (4.0-10.0) x10^3/uL RBC 3.60 L (4.00-5.50) x10^6/uL Hgb 10.1 L D (12.0-16.0) g/dL Hct 31.5 L (33.0-47.0) % MCV 87.5 (78.0-93.0) fL MCH 28.1 (26.0-32.0) pg MCHC 32.1 (32.0-36.0) g/dL RDW Coeff of Sonny 13.2 (10.0-15.0) % Plt Count 397 (130-400) x10^3/uL Neut % (Auto) 84.1 H (50.0-80.0) % Lymph % (Auto) 12.3 L (25.0-50.0) % Bell % (Auto) 3.5 (2.0-11.0) % Eos % (Auto) 0.0 (0.0-4.0) % Baso % (Auto) 0.1 L (0.2-1.2) % Sodium 144 (69-191) mmol/L Potassium 3.7 (1.5-9.9) mmol/L Chloride 110 H (54-184) mmol/L Carbon Dioxide 18 L (21-32) mmol/L Anion Gap 19.7 (10-20) mmol/L BUN 13 (7-18) mg/dL Creatinine 0.8 (0.55-1.02) mg/dL Est Cr Clr Drug Dosing 48.79 mL/min Estimated GFR (MDRD) > 60 Glucose 93 (74-106) mg/dL Calcium 7.5 L (8.5-10.1) mg/dL Magnesium 1.9 (1.8-2.4) mg/dL Creatine Kinase 292 H* (26-192) U/L Ady Results Last 24 Hours: Microbiology 04/20/19 10:47 Aerobic Blood Culture - Preliminary Blood - Venous - Lab Draw NO GROWTH AFTER 1 DAY Anaerobic Blood Culture - Preliminary NO GROWTH AFTER 1 DAY 04/20/19 10:32 Aerobic Blood Culture - Preliminary Blood - Venous NO GROWTH AFTER 1 DAY Anaerobic Blood Culture - Preliminary NO GROWTH AFTER 1 DAY Med Orders - Current: Current Medications Acetaminophen (Tylenol) 650 mg PO Q4H PRN PRN Reason: Pain (Mild 1-3)/fever Last Admin: 04/21/19 07:20 Dose: 650 mg Amlodipine Besylate (Norvasc) 5 mg PO DAILY [facility] Last Admin: 04/21/19 07:19 Dose: 5 mg Aspirin (Aspirin) 81 mg PO DAILY [facility] Last Admin: 04/21/19 07:19 Dose: 81 mg Enoxaparin Sodium (Lovenox) 40 mg SUBCUT DAILY [facility] Last Admin: 04/21/19 07:19 Dose: 40 mg Sodium Chloride (Normal Saline) 1,000 mls @ 150 mls/hr IV ASDIRECTED [facility] Last Admin: 04/21/19 07:20 Dose: 150 mls/hr Vancomycin HCl 1 gm/ Sodium (Chloride) 250 mls @ 250 mls/hr IV Q24H [facility] Last Admin: 04/20/19 14:06 Dose: 250 mls/hr Influenza Virus Vaccine (Pharmacy To Dose - Influenza Vaccine) 1 each IM ONETIME ONE Stop: 04/20/19 13:38 Mineral Oil/White Petrolatum (Minerin Creme) 0 gm TOP BID PRN PRN Reason: Dryness Last Admin: 04/21/19 07:19 Dose: 1 applic Prednisone (Prednisone) 5 mg PO DAILY [facility] Last Admin: 04/21/19 07:20 Dose: 5 mg Sodium Chloride (Saline Flush) 10 ml FLUSH ASDIRECTED PRN PRN Reason: Keep Vein Open Vancomycin HCl (Pharmacy To Dose - Vancomycin) 1 dose .XX ASDIRECTED [facility] Discontinued Medications Cefazolin Sodium (Ancef) 1 gm IVPUSH ONETIME ONE Stop: 04/20/19 11:27 Last Admin: 04/20/19 11:59 Dose: 1 gm Influenza Virus Vaccine (Fluzone High-Dose 2018-20 Syringe) 180 mcg IM .ONCE ONE Stop: 04/20/19 12:46 Methylprednisolone Sodium Succinate (Solu-Medrol) 125 mg IVPUSH ONETIME ONE Stop: 04/20/19 13:31 Last Admin: 04/20/19 14:06 Dose: 125 mg Pharmacy Consult (Consult To Pharmacy) 1 each .XX ASDIRECTED [facility] - Exam Quality Assessment: Urine Catheter, DVT Prophylaxis, Skin Breakdown General: Alert, Cooperative, No Acute Distress. No: Oriented Lungs: Clear to Auscultation, Normal Respiratory Effort Cardiovascular: Regular Rate, Regular Rhythm GI/Abdominal Exam: Normal Bowel Sounds, Soft, Non-Tender Extremities: Pedal Edema (+1 dependent pitting edema RLE), Limited Range of Motion, Increased Warmth, Redness Peripheral Pulses: 2+: Radial (R), Femoral (L) Skin: Other (RLE with cellulitis and blistering; tender; very warm; erythema extends just above the right knee) Neurological: No New Focal Deficit (patient confused) - Problem List & Annotations (1) Cellulitis SNOMED Code(s): 668446522 Code(s): L03.90 - CELLULITIS, UNSPECIFIED Status: Acute Priority: High Current Visit: Yes Onset Date: ~04/20/19 Qualifiers: Site of cellulitis: extremity Site of cellulitis of extremity: lower extremity Laterality: right Qualified Code(s): L03.115 - Cellulitis of right lower limb (2) Confusion SNOMED Code(s): 194894535 Code(s): R41.0 - DISORIENTATION, UNSPECIFIED Status: Chronic Priority: Medium Current Visit: Yes (3) Rhabdomyolysis SNOMED Code(s): 783780194 Code(s): M62.82 - RHABDOMYOLYSIS Status: Acute Priority: High Current Visit: Yes Qualifiers: Rhabdomyolysis type: non-traumatic Qualified Code(s): M62.82 - Rhabdomyolysis (4) Essential hypertension SNOMED Code(s): 78320179 Code(s): I10 - ESSENTIAL (PRIMARY) HYPERTENSION Status: Chronic Priority : Medium Current Visit: No (5) Rheumatoid arthritis SNOMED Code(s): 23307682 Code(s): M06.9 - RHEUMATOID ARTHRITIS, UNSPECIFIED Status: Chronic Priority: Medium Current Visit: No Qualifiers: Rheumatoid arthritis location: multiple sites Rheumatoid factor presence: with rheumatoid factor Qualified Code(s): M05.79 - Rheumatoid arthritis with rheumatoid factor of multiple sites without organ or systems involvement (6) History of DVT (deep vein thrombosis) SNOMED Code(s): 635306738 Code(s): Z86.718 - PERSONAL HISTORY OF OTHER VENOUS THROMBOSIS AND EMBOLISM Status: Chronic Priority: Low Current Visit: No (7) History of shingles SNOMED Code(s): 255913997103331 Code(s): Z86.19 - PERSONAL HISTORY OF OTHER INFECTIOUS AND PARASITIC DISEASES Status: Chronic Priority: Low Current Visit: No (8) Osteopenia SNOMED Code(s): 058475772 Code(s): M85.80 - OTH DISRD OF BONE DENSITY AND STRUCTURE, UNSPECIFIED SITE Status: Chronic Priority: Low Current Visit: No Qualifiers: Osteopenia location: multiple sites Qualified Code(s): M85.89 - Other specified disorders of bone density and structure, multiple sites (9) Cognitive impairment SNOMED Code(s): 359991513 Code(s): R41.89 - OTH SYMPTOMS AND SIGNS W COGNITIVE FUNCTIONS AND AWARENESS Status: Chronic Priority: Medium Current Visit: Yes - Problem List Review Problem List Initiated/Reviewed/Updated: Yes - My Orders Last 24 Hours: My Active Orders 04/20/19 12:28 Influenza Vaccine Charge [RC] .DISCHARGE 04/20/19 13:14 Patient Status [ADT] Routine Ambulate [RC] 08,20 Oxygen Therapy [RC] PRN Vital Signs [RC] 06,10,14,18,22,02 Consult to Case Management/Front Elevator Operator [CONS] Routine OT Evaluation and Treatment [CONS] Routine PT Evaluation and Treatment [CONS] Routine Acetaminophen [Tylenol] 650 mg PO Q4H PRN 04/20/19 13:19 Mineral Oil/Petrolatum,White [Minerin Creme] 0 gm TOP BID PRN 04/20/19 13:30 Enoxaparin [Lovenox] 40 mg SUBCUT DAILY Pharmacy to Dose - Vancomycin 1 dose .XX ASDIRECTED 04/20/19 14:00 Vancomycin 1 gm Sodium Chloride 0.9% [Normal Saline (AdvBag)] 250 ml IV Q24H 04/20/19 20:49 Dietary Supplements [RC] 04/21/19 08:00 Aspirin 81 mg PO DAILY amLODIPine [Norvasc] 5 mg PO DAILY predniSONE 5 mg PO DAILY 04/22/19 05:11 BASIC METABOLIC PANEL,BMP [CHEM] Routine CREATINE KINASE,CK [CHEM] Routine DD [D-DIMER QUANTITATIVE] [COAG] Routine INR,PT,PROTHROMBIN TIME [COAG] Routine - Assessment Assessment:: 1. Cellulitis of the right lower extremity 2. Rhabdomyolysis 3. Dehydration 4. Rheumatoid arthritis 5. Essential hypertension 6. History of DVT 7. History of shingles 8. Osteopenia 9. Cognitive impairment - Plan Plan:: PLAN: Hospital day #2 for an 83 yo female patient admitted with RLE cellulitis. The patient will be continued on vancomycin IV to be adjusted by pharmacy. We will start the patient on Lovenox also to be adjusted by pharmacy. We'll continue with normal saline at 125 mL per hour. Continue to monitor I&O. We will have physical and occupational therapy see the patient. We have also consult case management for possible group home placement. The patient is a code level II. The patient does not wish to be transferred to a high-level care should the need arise. I suspect the patient will be admitted for at least 3-4 days. Would like the right lower extremity to be open to air and keep elevated. Do not use any YVONNE hose on the right lower extremity. Valerio catheter will remain in place for strict I&O. We'll recheck labs in the a.m. Add D-Dimer 2/2 history of DVT. Will obtained US of BLE to r/o any clots. NOTE: This patient was seen and examined by me as an [facility] provider
[2019-04-21] MEDS ORDERED: Piperacillin/Tazobactam 4.5 GM in Sodium Chloride 0.9% 100 ML IV ONE (13:30)
[2019-04-21] MEDS: Piperacillin/Tazobactam 3.375 GM in Sodium Chloride 0.9% 100 ML IV SCH (21:05)
[2019-04-22] MEDS: Sodium Chloride 0.9% 1,000 ML IV SCH ×3 (04:58→16:19)
[2019-04-22] MEDS: Piperacillin/Tazobactam 3.375 GM in Sodium Chloride 0.9% 100 ML IV SCH ×4 (05:03→22:07)
[2019-04-22] MEDS ORDERED: Piperacillin/Tazobactam 3.375 GM in Sodium Chloride 0.9% 100 ML IV SCH (07:30)
[2019-04-22] MEDS ORDERED: Bacitracin Oint 1 GM U/D Packet TOP PRN (07:39)
[2019-04-22] MEDS ORDERED: Lidocaine 1% with EPINEPHrine 1:100,000 20 ML MDV INFILT ONE (07:43)
[2019-04-22 08:25] LABS: ANION GAP 13.3 mmol/L (10-20)
[2019-04-22] MEDS: Enoxaparin 40 MG/0.4 ML Syringe SUBCUT SCH ×2 (08:26→19:14)
[2019-04-22] MEDS: amLODIPine 5 MG Tab PO SCH (08:26)
[2019-04-22] MEDS: Polyethylene Glycol 3350 Powder 17 GM Packet PO SCH (08:26)
[2019-04-22] MEDS: Mineral Oil/Petrolatum,White Crm 454 GM Jar TOP PRN (08:27)
[2019-04-22] MEDS: predniSONE 5 MG Tab PO SCH (08:28)
[2019-04-22] MEDS: Aspirin 81 MG Tab.Chew PO SCH (08:28)
[2019-04-22] MEDS ORDERED: Potassium Chloride 20 MEQ Tab.ER PO ONE (08:30)
--- NOTE | 2019-04-22 08:37 | PCM.PN ---
- General Info Date of Service: 04/22/19 Admission Dx/Problem (Free Text): Admission Diagnosis/Problem Admission Diagnosis/Problem Cellulitis, Right Lower Extremity Rhabdo Dehydration Weakness Deconditioning HTN RA Subjective Update: Patient is pleasantly confused. She offers no specific complaints. She has a long-standing history of itching that family states has been a problem since childhood. Patient offers no specific complaints. She continues to ask the same questions. Functional Status: Reports: Pain Controlled, Tolerating Diet, Urinating. Denies : New Symptoms Pain Score: 0 - Review of Systems General: Reports: Weakness. Denies: Fever, Chills Pulmonary: Denies: Shortness of Breath, Cough Cardiovascular: Denies: Chest Pain, Palpitations Gastrointestinal: Denies: Abdominal Pain, Nausea, Vomiting Musculoskeletal: Reports: Leg Pain (RLE) Skin: Reports: No Symptoms Neurological: Reports: Confusion - Patient Data Vitals - Most Recent: Last Vital Signs Temp 98.1 F 04/22/19 05:24 Pulse 73 04/22/19 05:24 Resp 18 04/22/19 05:24 BP 129/68 04/22/19 08:26 Pulse Ox 96 04/22/19 05:24 Weight - Most Recent: 143 lb 6 oz I&O - Last 24 Hours: Intake & Output 04/21/19 04/22/19 04/22/19 23:59 06:59 14:59 Intake Total Output Total Balance Lab Results Last 24 Hours: Laboratory Results - last 24 hr 04/22/19 04/22/19 04/22/19 Range/Units 07:39 07:39 07:39 WBC 7.4 (4.0-10.0) x10^3/uL RBC 3.41 L (4.00-5.50) x10^6/uL Hgb 9.6 L (12.0-16.0) g/dL Hct 29.9 L (33.0-47.0) % MCV 87.7 (78.0-93.0) fL MCH 28.2 (26.0-32.0) pg MCHC 32.1 (32.0-36.0) g/dL RDW Coeff of Sonny 13.5 (10.0-15.0) % Plt Count 367 (130-400) x10^3/uL Neut % (Auto) 62.8 (50.0-80.0) % Lymph % (Auto) 22.7 L (25.0-50.0) % [place] % (Auto) 12.9 H (2.0-11.0) % Eos % (Auto) 1.5 (0.0-4.0) % Baso % (Auto) 0.1 L (0.2-1.2) % PT 10.4 (10.0-12.8) SEC INR 0.9 L (2.0-3.5) D-Dimer, Quantitative 4.27 H (<=0.58) mg/LFEU Sodium 144 (69-191) mmol/L Potassium 3.3 L (1.5-9.9) mmol/L Chloride 112 H (54-184) mmol/L Carbon Dioxide 22 (21-32) mmol/L Anion Gap 13.3 (10-20) mmol/L BUN 18 (7-18) mg/dL Creatinine 0.9 (0.55-1.02) mg/dL Est Cr Clr Drug Dosing 43.37 mL/min Estimated GFR (MDRD) 60 Glucose 92 (74-106) mg/dL Calcium 7.5 L (8.5-10.1) mg/dL Creatine Kinase 167 (26-192) U/L Ady Results Last 24 Hours: Microbiology 04/20/19 10:47 Aerobic Blood Culture - Preliminary Blood - Venous - Lab Draw NO GROWTH AFTER 1 DAY Anaerobic Blood Culture - Preliminary NO GROWTH AFTER 1 DAY 04/20/19 10:32 Aerobic Blood Culture - Preliminary Blood - Venous NO GROWTH AFTER 1 DAY Anaerobic Blood Culture - Preliminary NO GROWTH AFTER 1 DAY Med Orders - Current: Current Medications Acetaminophen (Tylenol) 650 mg PO Q4H PRN PRN Reason: Pain (Mild 1-3)/fever Last Admin: 04/21/19 07:20 Dose: 650 mg Amlodipine Besylate (Norvasc) 5 mg PO DAILY [facility] Last Admin: 04/22/19 08:26 Dose: 5 mg Aspirin (Aspirin) 81 mg PO DAILY [facility] Last Admin: 04/22/19 08:28 Dose: 81 mg Bacitracin (Bacitracin Oint 1 Gm) 1 dose TOP DAILY PRN PRN Reason: Wound healing RLE Last Admin: 04/22/19 08:31 Dose: 1 dose Enoxaparin Sodium (Lovenox) 40 mg SUBCUT Q12H [facility] Last Admin: 04/22/19 08:26 Dose: 40 mg Vancomycin HCl 1 gm/ Sodium (Chloride) 250 mls @ 250 mls/hr IV Q24H [facility] Last Admin: 04/21/19 13:53 Dose: 250 mls/hr Sodium Chloride (Normal Saline) 1,000 mls @ 125 mls/hr IV ASDIRECTED [facility] Piperacillin Sod/Tazobactam (Sod 3.375 gm/ Sodium Chloride) 100 mls @ 200 mls/ hr IV Q6H [facility] Influenza Virus Vaccine (Pharmacy To Dose - Influenza Vaccine) 1 each IM ONETIME ONE Stop: 04/20/19 13:38 Mineral Oil/White Petrolatum (Minerin Creme) 0 gm TOP BID PRN PRN Reason: Dryness Last Admin: 04/22/19 08:27 Dose: 1 applic Polyethylene Glycol (Miralax) 17 gm PO DAILY [facility] Last Admin: 04/22/19 08:26 Dose: 17 gm Potassium Chloride (Klor-Con M20) 40 meq PO ONETIME ONE Stop: 04/22/19 08:31 Prednisone (Prednisone) 5 mg PO DAILY [facility] Last Admin: 04/22/19 08:28 Dose: 5 mg Sodium Chloride (Saline Flush) 10 ml FLUSH ASDIRECTED PRN PRN Reason: Keep Vein Open Vancomycin HCl (Pharmacy To Dose - Vancomycin) 1 dose .XX ASDIRECTED [facility] Discontinued Medications Cefazolin Sodium (Ancef) 1 gm IVPUSH ONETIME ONE Stop: 04/20/19 11:27 Last Admin: 04/20/19 11:59 Dose: 1 gm Enoxaparin Sodium (Lovenox) 40 mg SUBCUT DAILY [facility] Last Admin: 04/21/19 07:19 Dose: 40 mg Sodium Chloride (Normal Saline) 1,000 mls @ 150 mls/hr IV ASDIRECTED [facility] Last Admin: 04/22/19 04:58 Dose: 150 mls/hr Piperacillin Sod/Tazobactam (Sod 3.375 gm/ Sodium Chloride) 100 mls @ 25 mls/ hr IV Q8H [facility] Last Admin: 04/22/19 05:03 Dose: 25 mls/hr Piperacillin Sod/Tazobactam (Sod 4.5 gm/ Sodium Chloride) 100 mls @ 200 mls/hr IV ONETIME ONE Stop: 04/21/19 13:59 Last Admin: 04/21/19 13:38 Dose: 200 mls/hr Piperacillin Sod/Tazobactam (Sod 3.375 gm/ Sodium Chloride) 100 mls @ 200 mls/ hr IV Q6H [facility] Last Admin: 04/22/19 08:30 Dose: Not Given Influenza Virus Vaccine (Fluzone High-Dose 2019-20 Syringe) 180 mcg IM .ONCE ONE Stop: 04/20/19 12:46 Last Admin: 04/21/19 11:36 Dose: 180 mcg Lidocaine/Epinephrine (Xylocaine 1% With Epinephrine 1:100,000) 20 ml INFILT ONETIME ONE Stop: 04/22/19 07:44 Last Admin: 04/22/19 08:29 Dose: Not Given Methylprednisolone Sodium Succinate (Solu-Medrol) 125 mg IVPUSH ONETIME ONE Stop: 04/20/19 13:31 Last Admin: 04/20/19 14:06 Dose: 125 mg Pharmacy Consult (Consult To Pharmacy) 1 each .XX ASDIRECTED [facility] - Exam Quality Assessment: Urine Catheter, DVT Prophylaxis, Skin Breakdown General: Alert, Cooperative, No Acute Distress. No: Oriented Lungs: Clear to Auscultation, Normal Respiratory Effort Cardiovascular: Regular Rate, Regular Rhythm GI/Abdominal Exam: Normal Bowel Sounds, Soft, Non-Tender Extremities: Pedal Edema, Leg Pain, Increased Warmth, Redness Skin: Warm Neurological: Other (Increased confusion) - Problem List & Annotations (1) Cellulitis SNOMED Code(s): 303441572 Code(s): L03.90 - CELLULITIS, UNSPECIFIED Status: Acute Priority: High Current Visit: Yes Onset Date: ~04/20/19 Qualifiers: Site of cellulitis: extremity Site of cellulitis of extremity: lower extremity Laterality: right Qualified Code(s): L03.115 - Cellulitis of right lower limb (2) Confusion SNOMED Code(s): 930438626 Code(s): R41.0 - DISORIENTATION, UNSPECIFIED Status: Chronic Priority: Medium Current Visit: Yes (3) Rhabdomyolysis SNOMED Code(s): 825909001 Code(s): M62.82 - RHABDOMYOLYSIS Status: Acute Priority: High Current Visit: Yes Qualifiers: Rhabdomyolysis type: non-traumatic Qualified Code(s): M62.82 - Rhabdomyolysis (4) Essential hypertension SNOMED Code(s): 56874045 Code(s): I10 - ESSENTIAL (PRIMARY) HYPERTENSION Status: Chronic Priority : Medium Current Visit: No (5) Rheumatoid arthritis SNOMED Code(s): 13832331 Code(s): M06.9 - RHEUMATOID ARTHRITIS, UNSPECIFIED Status: Chronic Priority: Medium Current Visit: No Qualifiers: Rheumatoid arthritis location: multiple sites Rheumatoid factor presence: with rheumatoid factor Qualified Code(s): M05.79 - Rheumatoid arthritis with rheumatoid factor of multiple sites without organ or systems involvement (6) History of DVT (deep vein thrombosis) SNOMED Code(s): 170108080 Code(s): Z86.718 - PERSONAL HISTORY OF OTHER VENOUS THROMBOSIS AND EMBOLISM Status: Chronic Priority: Low Current Visit: No (7) History of shingles SNOMED Code(s): 315554544433997 Code(s): Z86.19 - PERSONAL HISTORY OF OTHER INFECTIOUS AND PARASITIC DISEASES Status: Chronic Priority: Low Current Visit: No (8) Osteopenia SNOMED Code(s): 970943077 Code(s): M85.80 - OTH DISRD OF BONE DENSITY AND STRUCTURE, UNSPECIFIED SITE Status: Chronic Priority: Low Current Visit: No Qualifiers: Osteopenia location: multiple sites Qualified Code(s): M85.89 - Other specified disorders of bone density and structure, multiple sites (9) Cognitive impairment SNOMED Code(s): 445648213 Code(s): R41.89 - OTH SYMPTOMS AND SIGNS W COGNITIVE FUNCTIONS AND AWARENESS Status: Chronic Priority: Medium Current Visit: Yes - Problem List Review Problem List Initiated/Reviewed/Updated: Yes - My Orders Last 24 Hours: My Active Orders 04/21/19 11:59 CV Venous Duplex Legs Bi [US] Routine 04/21/19 13:22 Dietary Supplements [RC] BIDMEALS Specialty Boots [OM.PC] Routine 04/22/19 07:30 Enoxaparin [Lovenox] 40 mg SUBCUT Q12H 04/22/19 07:39 Bacitracin [Bacitracin Oint 1 GM] 1 dose TOP DAILY PRN 04/22/19 07:45 Sodium Chloride 0.9% [Normal Saline] 1,000 ml IV ASDIRECTED 04/22/19 08:00 Polyethylene Glycol 3350 [MiraLAX] 17 gm PO DAILY 04/22/19 08:30 Potassium Chloride [Klor-Con M20] 40 meq PO ONETIME ONE 04/22/19 11:00 Piperacillin/Tazobactam [Zosyn] 3.375 gm Sodium Chloride 0.9% [Normal Saline] 100 ml IV Q6H 04/23/19 05:11 BASIC METABOLIC PANEL,BMP [CHEM] Routine CBC WITH AUTO DIFF [HEME] Routine CREATINE KINASE,CK [CHEM] Routine 04/23/19 08:00 CV Venous Duplex Legs Bi [US] Routine - Assessment Assessment:: 1. Cellulitis of the right lower extremity 2. Rhabdomyolysis 3. Dehydration 4. Rheumatoid arthritis 5. Essential hypertension 6. History of DVT 7. History of shingles 8. Osteopenia 9. Cognitive impairment - Plan Plan:: PLAN: Hospital day #3 for an 83 yo female patient admitted with RLE cellulitis. The patient will be continued on vancomycin IV to be adjusted by pharmacy. Zosyn added yesterday, tolerating well. Lovenox BID until DVT is ruled out. We'll continue with normal saline at 125 mL per hour for today and discontinue tomorrow. Continue to monitor I&O. We will have physical and occupational therapy see the patient. We have also consult case management for possible correction placement. The patient is a code level II. The patient does not wish to be transferred to a high-level care should the need arise. I suspect the patient will be admitted for at least 3-4 days. Would like the right lower extremity to be open to air and keep elevated. Do not use any YVONNE hose on the right lower extremity. Valerio catheter will remain in place for strict I&O. We' ll recheck labs in the a.m. D-dimer elevated today, possibly due to infection vs DVT. Will obtained US of BLE to r/o any clots. Will replace KCL today PO. Would like to obtain bx of RLE, however unable to complete on inpatient unit. NOTE: This patient was seen and examined by me as an [facility] provider
[2019-04-23] MEDS: Sodium Chloride 0.9% 1,000 ML IV SCH (00:48)
[2019-04-23] MEDS: Piperacillin/Tazobactam 3.375 GM in Sodium Chloride 0.9% 100 ML IV SCH ×3 (05:08→18:44)
[2019-04-23 07:00] LABS: CHLORIDE,CL 114 mmol/L (54-184); SODIUM,NA 144 mmol/L (69-191)
[2019-04-23 07:01] LABS: ANION GAP 12.8 mmol/L (10-20)
[2019-04-23] MEDS: Enoxaparin 40 MG/0.4 ML Syringe SUBCUT SCH (07:37)
[2019-04-23] MEDS: predniSONE 5 MG Tab PO SCH (07:39)
[2019-04-23] MEDS: amLODIPine 5 MG Tab PO SCH (07:39)
[2019-04-23] MEDS: Aspirin 81 MG Tab.Chew PO SCH (07:39)
[2019-04-23] MEDS: Polyethylene Glycol 3350 Powder 17 GM Packet PO SCH (07:39)
--- NOTE | 2019-04-23 07:46 | PCM.PN ---
- General Info Date of Service: 04/23/19 Admission Dx/Problem (Free Text): Admission Diagnosis/Problem Admission Diagnosis/Problem Cellulitis, Right Lower Extremity Rhabdo Dehydration Weakness Deconditioning HTN RA Subjective Update: Patient appears to be less confused this AM. Patient continues to ask why she is in the hospital. She has a long-standing history of itching that family states has been a problem since childhood. Patient offers no specific complaints. Patient is a poor historian. Functional Status: Reports: Pain Controlled, Tolerating Diet, Urinating. Denies : New Symptoms Pain Score: 0 - Review of Systems General: Denies: Fever, Chills Pulmonary: Denies: Shortness of Breath, Cough Cardiovascular: Denies: Chest Pain, Palpitations Gastrointestinal: Denies: Abdominal Pain, Nausea, Vomiting Skin: Reports: Pruritis Neurological: Reports: Confusion - Patient Data Vitals - Most Recent: Last Vital Signs Temp 98.9 F 04/23/19 05:11 Pulse 72 04/23/19 05:11 Resp 18 04/23/19 05:11 BP 150/74 H 04/23/19 07:39 Pulse Ox 93 L 04/23/19 05:11 Weight - Most Recent: 143 lb 6 oz I&O - Last 24 Hours: Intake & Output 04/22/19 04/23/19 04/23/19 22:59 06:59 14:59 Intake Total 2398 1674 Output Total 900 1250 Balance 1498 424 Lab Results Last 24 Hours: Laboratory Results - last 24 hr 04/22/19 04/22/19 04/22/19 Range/Units 07:39 07:39 07:39 WBC 7.4 (4.0-10.0) x10^3/uL RBC 3.41 L (4.00-5.50) x10^6/uL Hgb 9.6 L (12.0-16.0) g/dL Hct 29.9 L (33.0-47.0) % MCV 87.7 (78.0-93.0) fL MCH 28.2 (26.0-32.0) pg MCHC 32.1 (32.0-36.0) g/dL RDW Coeff of Sonny 13.5 (10.0-15.0) % Plt Count 367 (130-400) x10^3/uL Neut % (Auto) 62.8 (50.0-80.0) % Lymph % (Auto) 22.7 L (25.0-50.0) % Patrick % (Auto) 12.9 H (2.0-11.0) % Eos % (Auto) 1.5 (0.0-4.0) % Baso % (Auto) 0.1 L (0.2-1.2) % PT 10.4 (10.0-12.8) SEC INR 0.9 L (2.0-3.5) D-Dimer, Quantitative 4.27 H (<=0.58) mg/LFEU Sodium 144 (69-191) mmol/L Potassium 3.3 L (1.5-9.9) mmol/L Chloride 112 H (54-184) mmol/L Carbon Dioxide 22 (21-32) mmol/L Anion Gap 13.3 (10-20) mmol/L BUN 18 (7-18) mg/dL Creatinine 0.9 (0.55-1.02) mg/dL Est Cr Clr Drug Dosing 43.37 mL/min Estimated GFR (MDRD) 60 Glucose 92 (74-106) mg/dL Calcium 7.5 L (8.5-10.1) mg/dL Creatine Kinase 167 (26-192) U/L 04/23/19 04/23/19 Range/Units 06:33 06:33 WBC 4.8 (4.0-10.0) x10^3/uL RBC 3.26 L (4.00-5.50) x10^6/uL Hgb 9.2 L (12.0-16.0) g/dL Hct 28.8 L (33.0-47.0) % MCV 88.3 (78.0-93.0) fL MCH 28.2 (26.0-32.0) pg MCHC 31.9 L (32.0-36.0) g/dL RDW Coeff of Sonny 13.5 (10.0-15.0) % Plt Count 317 (130-400) x10^3/uL Neut % (Auto) 47.1 L (50.0-80.0) % Lymph % (Auto) 32.2 (25.0-50.0) % Patrick % (Auto) 13.8 H (2.0-11.0) % Eos % (Auto) 6.7 H (0.0-4.0) % Baso % (Auto) 0.2 (0.2-1.2) % PT (10.0-12.8) SEC INR (2.0-3.5) D-Dimer, Quantitative (<=0.58) mg/LFEU Sodium 144 (69-191) mmol/L Potassium 3.8 (1.5-9.9) mmol/L Chloride 114 H (54-184) mmol/L Carbon Dioxide 21 (21-32) mmol/L Anion Gap 12.8 (10-20) mmol/L BUN 12 (7-18) mg/dL Creatinine 0.8 (0.55-1.02) mg/dL Est Cr Clr Drug Dosing 48.79 mL/min Estimated GFR (MDRD) > 60 Glucose 86 (74-106) mg/dL Calcium 7.6 L (8.5-10.1) mg/dL Creatine Kinase 99 (26-192) U/L Ady Results Last 24 Hours: Microbiology 04/20/19 10:47 Aerobic Blood Culture - Preliminary Blood - Venous - Lab Draw NO GROWTH AFTER 2 DAYS Anaerobic Blood Culture - Preliminary NO GROWTH AFTER 2 DAYS 04/20/19 10:32 Aerobic Blood Culture - Preliminary Blood - Venous NO GROWTH AFTER 2 DAYS Anaerobic Blood Culture - Preliminary NO GROWTH AFTER 2 DAYS Med Orders - Current: Current Medications Acetaminophen (Tylenol) 650 mg PO Q4H PRN PRN Reason: Pain (Mild 1-3)/fever Last Admin: 04/21/19 07:20 Dose: 650 mg Amlodipine Besylate (Norvasc) 5 mg PO DAILY [facility] Last Admin: 04/23/19 07:39 Dose: 5 mg Aspirin (Aspirin) 81 mg PO DAILY [facility] Last Admin: 04/23/19 07:39 Dose: 81 mg Bacitracin (Bacitracin Oint 1 Gm) 1 dose TOP DAILY PRN PRN Reason: Wound healing RLE Last Admin: 04/22/19 08:31 Dose: 1 dose Enoxaparin Sodium (Lovenox) 40 mg SUBCUT Q12H [facility] Last Admin: 04/23/19 07:37 Dose: 40 mg Vancomycin HCl 1 gm/ Sodium (Chloride) 250 mls @ 250 mls/hr IV Q24H [facility] Last Admin: 04/22/19 14:12 Dose: 250 mls/hr Piperacillin Sod/Tazobactam (Sod 3.375 gm/ Sodium Chloride) 100 mls @ 200 mls/ hr IV Q6H [facility] Last Admin: 04/23/19 05:08 Dose: 200 mls/hr Influenza Virus Vaccine (Pharmacy To Dose - Influenza Vaccine) 1 each IM ONETIME ONE Stop: 04/20/19 13:38 Mineral Oil/White Petrolatum (Minerin Creme) 0 gm TOP BID PRN PRN Reason: Dryness Last Admin: 04/22/19 08:27 Dose: 1 applic Polyethylene Glycol (Miralax) 17 gm PO DAILY [facility] Last Admin: 04/23/19 07:39 Dose: 17 gm Prednisone (Prednisone) 5 mg PO DAILY [facility] Last Admin: 04/23/19 07:39 Dose: 5 mg Sodium Chloride (Saline Flush) 10 ml FLUSH ASDIRECTED PRN PRN Reason: Keep Vein Open Vancomycin HCl (Pharmacy To Dose - Vancomycin) 1 dose .XX ASDIRECTED [facility] Discontinued Medications Cefazolin Sodium (Ancef) 1 gm IVPUSH ONETIME ONE Stop: 04/20/19 11:27 Last Admin: 04/20/19 11:59 Dose: 1 gm Enoxaparin Sodium (Lovenox) 40 mg SUBCUT DAILY [facility] Last Admin: 04/21/19 07:19 Dose: 40 mg Sodium Chloride (Normal Saline) 1,000 mls @ 150 mls/hr IV ASDIRECTED [facility] Last Admin: 04/22/19 04:58 Dose: 150 mls/hr Piperacillin Sod/Tazobactam (Sod 3.375 gm/ Sodium Chloride) 100 mls @ 25 mls/ hr IV Q8H [facility] Last Admin: 04/22/19 05:03 Dose: 25 mls/hr Piperacillin Sod/Tazobactam (Sod 4.5 gm/ Sodium Chloride) 100 mls @ 200 mls/hr IV ONETIME ONE Stop: 04/21/19 13:59 Last Admin: 04/21/19 13:38 Dose: 200 mls/hr Piperacillin Sod/Tazobactam (Sod 3.375 gm/ Sodium Chloride) 100 mls @ 200 mls/ hr IV Q6H [facility] Last Admin: 04/22/19 08:30 Dose: Not Given Sodium Chloride (Normal Saline) 1,000 mls @ 125 mls/hr IV ASDIRECTED VAL Last Admin: 04/23/19 00:48 Dose: 125 mls/hr Influenza Virus Vaccine (Fluzone High-Dose 2019-20 Syringe) 180 mcg IM .ONCE ONE Stop: 04/20/19 12:46 Last Admin: 04/21/19 11:36 Dose: 180 mcg Lidocaine/Epinephrine (Xylocaine 1% With Epinephrine 1:100,000) 20 ml INFILT ONETIME ONE Stop: 04/22/19 07:44 Last Admin: 04/22/19 08:29 Dose: Not Given Methylprednisolone Sodium Succinate (Solu-Medrol) 125 mg IVPUSH ONETIME ONE Stop: 04/20/19 13:31 Last Admin: 04/20/19 14:06 Dose: 125 mg Pharmacy Consult (Consult To Pharmacy) 1 each .XX ASDIRECTED [facility] Potassium Chloride (Klor-Con M20) 40 meq PO ONETIME ONE Stop: 04/22/19 08:31 Last Admin: 04/22/19 08:42 Dose: 40 meq - Exam Quality Assessment: Urine Catheter, DVT Prophylaxis, Skin Breakdown General: Alert, Cooperative, No Acute Distress. No: Oriented Lungs: Clear to Auscultation, Normal Respiratory Effort Cardiovascular: Regular Rate, Regular Rhythm GI/Abdominal Exam: Normal Bowel Sounds, Soft, Non-Tender Peripheral Pulses: 1+: Dorsalis Pedis (L), Dorsalis Pedis (R) Skin: Warm, Dry Wound/Incisions: Drainage, Erythema Improving Neurological: No New Focal Deficit - Problem List & Annotations (1) Cellulitis SNOMED Code(s): 275773426 Code(s): L03.90 - CELLULITIS, UNSPECIFIED Status: Acute Priority: High Current Visit: Yes Onset Date: ~04/20/19 Qualifiers: Site of cellulitis: extremity Site of cellulitis of extremity: lower extremity Laterality: right Qualified Code(s): L03.115 - Cellulitis of right lower limb (2) Confusion SNOMED Code(s): 277793282 Code(s): R41.0 - DISORIENTATION, UNSPECIFIED Status: Chronic Priority: Medium Current Visit: Yes (3) Rhabdomyolysis SNOMED Code(s): 583896473 Code(s): M62.82 - RHABDOMYOLYSIS Status: Acute Priority: High Current Visit: Yes Qualifiers: Rhabdomyolysis type: non-traumatic Qualified Code(s): M62.82 - Rhabdomyolysis (4) Essential hypertension SNOMED Code(s): 90917967 Code(s): I10 - ESSENTIAL (PRIMARY) HYPERTENSION Status: Chronic Priority : Medium Current Visit: No (5) Rheumatoid arthritis SNOMED Code(s): 86458818 Code(s): M06.9 - RHEUMATOID ARTHRITIS, UNSPECIFIED Status: Chronic Priority: Medium Current Visit: No Qualifiers: Rheumatoid arthritis location: multiple sites Rheumatoid factor presence: with rheumatoid factor Qualified Code(s): M05.79 - Rheumatoid arthritis with rheumatoid factor of multiple sites without organ or systems involvement (6) History of DVT (deep vein thrombosis) SNOMED Code(s): 771971196 Code(s): Z86.718 - PERSONAL HISTORY OF OTHER VENOUS THROMBOSIS AND EMBOLISM Status: Chronic Priority: Low Current Visit: No (7) History of shingles SNOMED Code(s): 123394324042293 Code(s): Z86.19 - PERSONAL HISTORY OF OTHER INFECTIOUS AND PARASITIC DISEASES Status: Chronic Priority: Low Current Visit: No (8) Osteopenia SNOMED Code(s): 512066078 Code(s): M85.80 - OTH DISRD OF BONE DENSITY AND STRUCTURE, UNSPECIFIED SITE Status: Chronic Priority: Low Current Visit: No Qualifiers: Osteopenia location: multiple sites Qualified Code(s): M85.89 - Other specified disorders of bone density and structure, multiple sites (9) Cognitive impairment SNOMED Code(s): 726438246 Code(s): R41.89 - OTH SYMPTOMS AND SIGNS W COGNITIVE FUNCTIONS AND AWARENESS Status: Chronic Priority: Medium Current Visit: Yes - Problem List Review Problem List Initiated/Reviewed/Updated: Yes - My Orders Last 24 Hours: My Active Orders 04/22/19 07:30 Enoxaparin [Lovenox] 40 mg SUBCUT Q12H 04/22/19 07:39 Bacitracin [Bacitracin Oint 1 GM] 1 dose TOP DAILY PRN 04/22/19 08:00 Polyethylene Glycol 3350 [MiraLAX] 17 gm PO DAILY 04/22/19 11:00 Piperacillin/Tazobactam [Zosyn] 3.375 gm Sodium Chloride 0.9% [Normal Saline] 100 ml IV Q6H 04/22/19 16:50 Hemoccult [Fecal Occult Bld Scn Imm] [RC] ONETIME 04/23/19 08:00 CV Venous Duplex Legs Bi [US] Routine 04/24/19 05:11 BASIC METABOLIC PANEL,BMP [CHEM] Routine CBC WITH AUTO DIFF [HEME] Routine - Assessment Assessment:: 1. Cellulitis of the right lower extremity 2. Rhabdomyolysis- improving 3. Dehydration- improving 4. Rheumatoid arthritis 5. Essential hypertension 6. History of DVT 7. History of shingles 8. Osteopenia 9. Cognitive impairment - Plan Plan:: PLAN: Hospital day #4 for an 83 yo female patient admitted with RLE cellulitis. The patient will be continued on vancomycin IV to be adjusted by pharmacy. Continue with Zosyn, tolerating well. Lovenox BID until DVT is ruled out. Stop IVF today as CK is normal. Continue to monitor I&O. We will have physical and occupational therapy see the patient. We have also consult case management for possible retirement placement. The patient is a code level II. The patient does not wish to be transferred to a high-level care should the need arise.Swing bed tomorrow. Would like the right lower extremity to be open to air and keep elevated. Do not use any YVONEN hose on the right lower extremity. Valerio catheter will remain in place for strict I&O. We'll recheck labs in the a.m. D-dimer elevated yesterday, possibly due to infection vs DVT. Will obtained US of BLE to r/o any clots. K normal today. Would like to obtain bx of RLE, however unable to complete on inpatient unit. NOTE: This patient was seen and examined by me as an [facility] provider
--- NOTE | 2019-04-23 11:07 | US ---
[id number] US/US Venous Doppler LE Bilateral Exam: US Venous Doppler LE Bilateral Clinical Data: CALF PAIN LEG SWELLING COMPARISON: CORRELATION IS MADE WITH THE EXAM OF 2015 FINDINGS: There is no deep vein thrombosis on either side The veins are compressible The valves are competent IMPRESSION: NEGATIVE EXAM Rashi Howard MD 04/23/19 1106 Thank you for allowing us to participate in the care of your patient.
[2019-04-23] MEDS ORDERED: Haloperidol Lactate 5 MG/ML SDV IV ONE ×2 (18:44→21:30)
[2019-04-24] MEDS: Piperacillin/Tazobactam 3.375 GM in Sodium Chloride 0.9% 100 ML IV SCH ×2 (02:31→11:03)
[2019-04-24 05:36] VITALS: BP 151/73; PULSE 72
[2019-04-24 07:06] LABS: CHLORIDE,CL 112 mmol/L (54-184); SODIUM,NA 145 mmol/L (69-191)
[2019-04-24 07:13] LABS: ANION GAP 12.5 mmol/L (10-20)
[2019-04-24] MEDS ORDERED: Furosemide 20 MG/2 ML VIAL IV ONE (07:36)
--- NOTE | 2019-04-24 07:42 | PCM.DCSUM1 ---
Discharge Summary - Hospital Course HPI Initial Comments: This is a 83-year-old female patient that was brought to the emergency room at [facility] in [place] per EMS after she was found laying on her floor in her home by her son. The patient does live alone. The patient apparently was laying in urine and dog feces. It is unknown how long the patient had been laying on the floor. The patient has denied falling. The patient states that she did not hit her head or lose any consciousness. The patient's initial workup in the emergency room showed an elevated CK of over 800 as well as significant cellulitis to the right lower extremity. The patient was given a gram of Ancef in the emergency room and started on IV fluids. The patient is a poor historian due to her confusion and undiagnosed dementia. The patient has a past medical history significant for hypertension and rheumatoid arthritis but she is currently being treated for. The patient is followed in clinic at . Her last visit with her PCP was December 28, 2018. Diagnosis: Stroke: No Modified Garrard Scale: No Symptoms at All Modified Garrard Scale Score: 0 - Discharge Data Discharge Date: 04/24/19 Discharge Disposition: DC/Tfer W/I Hosp To Swing 61 Condition: Good - Referral to Home Health Primary Care Physician: Senia Silvestre, DO - Discharge Diagnosis/Problem(s) (1) Cellulitis SNOMED Code(s): 956117234 ICD Code: L03.90 - CELLULITIS, UNSPECIFIED Status: Acute Priority: High Current Visit: Yes Onset Date: ~04/20/19 Qualifiers: Site of cellulitis: extremity Site of cellulitis of extremity: lower extremity Laterality: right Qualified Code(s): L03.115 - Cellulitis of right lower limb (2) Confusion SNOMED Code(s): 136394145 ICD Code: R41.0 - DISORIENTATION, UNSPECIFIED Status: Chronic Priority: Medium Current Visit: Yes (3) Rhabdomyolysis SNOMED Code(s): 179787589 ICD Code: M62.82 - RHABDOMYOLYSIS Status: Resolved Priority: High Current Visit: Yes Qualifiers: Rhabdomyolysis type: non-traumatic Qualified Code(s): M62.82 - Rhabdomyolysis (4) Essential hypertension SNOMED Code(s): 54710211 ICD Code: I10 - ESSENTIAL (PRIMARY) HYPERTENSION Status: Chronic Priority : Medium Current Visit: No (5) Rheumatoid arthritis SNOMED Code(s): 82156655 ICD Code: M06.9 - RHEUMATOID ARTHRITIS, UNSPECIFIED Status: Chronic Priority: Medium Current Visit: No Qualifiers: Rheumatoid arthritis location: multiple sites Rheumatoid factor presence: with rheumatoid factor Qualified Code(s): M05.79 - Rheumatoid arthritis with rheumatoid factor of multiple sites without organ or systems involvement (6) History of DVT (deep vein thrombosis) SNOMED Code(s): 152278149 ICD Code: Z86.718 - PERSONAL HISTORY OF OTHER VENOUS THROMBOSIS AND EMBOLISM Status: Chronic Priority: Low Current Visit: No (7) History of shingles SNOMED Code(s): 406796053583445 ICD Code: Z86.19 - PERSONAL HISTORY OF OTHER INFECTIOUS AND PARASITIC DISEASES Status: Chronic Priority: Low Current Visit: No (8) Osteopenia SNOMED Code(s): 954515509 ICD Code: M85.80 - OTH DISRD OF BONE DENSITY AND STRUCTURE, UNSPECIFIED SITE Status: Chronic Priority: Low Current Visit: No Qualifiers: Osteopenia location: multiple sites Qualified Code(s): M85.89 - Other specified disorders of bone density and structure, multiple sites (9) Cognitive impairment SNOMED Code(s): 981756958 ICD Code: R41.89 - OTH SYMPTOMS AND SIGNS W COGNITIVE FUNCTIONS AND AWARENESS Status: Chronic Priority: Medium Current Visit: Yes - Patient Summary/Data Operative Procedure(s) Performed: None Consults: Consultations 04/20/19 13:14 Consult to Case Management/Ict Trainer [CONS] Routine OT Evaluation and Treatment [CONS] Routine PT Evaluation and Treatment [CONS] Routine Labs Pending at D/C: None Recommended Follow-up Testing/Procedures: None Planned Operative Procedure(s) after DC: None Hospital Course: Patient admitted for significant cellulitis to [facility]. Abx therapy started. Wound cares to RLE daily. Initial CK was over 800, normalized with IVF hydration. CK normal on date of discharge to swing bed. LE dopplers negative for any DVT. Blood cultures have remained negative. No fevers. WBC normal. RLE infection improving. VSS. Valerio catheter and place. Large BM yesterday. Clinically, patient is improving. Will need intense therapy on swing bed. Patient had a couple days of acute confusion, was given IV Haldol. - Patient Instructions Diet: Heart Healthy Diet Activity: Full Weight Bearing Showering/Bathing: October Shower Wound/Incision Care: Keep Operative Site/Wound Site Clean and Dry, Change Dressing Daily - Discharge Plan *PRESCRIPTION DRUG MONITORING PROGRAM REVIEWED*: Not Applicable *COPY OF PRESCRIPTION DRUG MONITORING REPORT IN PATIENT SRAVANTHI: Not Applicable Home Medications: Home Meds predniSONE [Prednisone] 5 mg DAILY 05/20/15 [History] Aspirin 81 mg PO DAILY 04/20/19 [History] amLODIPine [Norvasc] 5 mg PO DAILY 04/20/19 [History] Acetaminophen [Tylenol] 650 mg PO Q4H PRN tablet 04/24/19 [Rx] Bacitracin [Bacitracin Oint 1 GM] 1 dose TOP DAILY PRN packet 04/24/19 [Rx] Enoxaparin [Lovenox] 40 mg SUBCUT Q24H syringe 04/24/19 [Rx] Mineral Oil/Petrolatum,White [Minerin] 0 gm TOP BID PRN jar 04/24/19 [Rx] Pharmacy to Dose - Vancomycin 1 dose .XX ASDIRECTED each 04/24/19 [Rx] Piperacillin/Tazobactam [Zosyn] 3.375 gm IV Q8H vial 04/24/19 [Rx] Polyethylene Glycol 3350 [MiraLAX] 17 gm PO DAILY packet 04/24/19 [Rx] Sodium Chloride 0.9% [Normal Saline (AdvBag)] 30 ml IV Q24H advbag 04/24/19 [Rx ] Sodium Chloride 0.9% [Saline Flush] 10 ml FLUSH ASDIRECTED PRN syringe [Rx] Triamcinolone Acetonide [Triamcinolone Acetonide 0.1% Crm] 15 gm TOP BID tube 04/24/19 [Rx] Vancomycin 1.25 gm IV Q24H sdv 04/24/19 [Rx] Oxygen Therapy Mode: Room Air - Discharge Summary/Plan Comment DC Time >30 min.: No Discharge Summary/Plan Comment: Patient status changed to swing bed. Acute admission H & P is still current and up to date as of the date of this discharge summary. No changes with any medications. Pharmacy to continue dosing abx therapy. Continue with PT. Case management for NH placement. - General Info Date of Service: 04/24/19 Admission Dx/Problem (Free Text: Admission Diagnosis/Problem Admission Diagnosis/Problem Cellulitis, Right Lower Extremity Rhabdo Dehydration Weakness Deconditioning HTN RA Subjective Update: Patient appears to be less confused this AM. Patient continues to ask why she is in the hospital. She has a long-standing history of itching that family states has been a problem since childhood. Patient offers no specific complaints. Patient is a poor historian. Functional Status: Reports: Pain Controlled, Tolerating Diet, Urinating, New Symptoms Numeric/FACES Score: 0 - Review of Systems General: Reports: Weakness. Denies: Fever, Chills Pulmonary: Denies: Shortness of Breath, Cough Cardiovascular: Denies: Chest Pain, Palpitations Gastrointestinal: Denies: Abdominal Pain, Nausea, Vomiting Skin: Reports: Pruritis Neurological: Reports: No Symptoms - Patient Data Vitals - Most Recent: Last Vital Signs Temp 98.8 F 04/24/19 05:34 Pulse 72 04/24/19 05:34 Resp 18 04/24/19 05:34 BP 151/73 H 04/24/19 05:34 Pulse Ox 94 L 04/24/19 05:34 Weight - Most Recent: 143 lb 6 oz I&O - Last 24 hours: Intake & Output 04/23/19 04/24/19 04/24/19 22:59 06:59 14:59 Intake Total 530 302 Output Total 1000 1300 Balance -470 -998 Lab Results - Last 24 hrs: Laboratory Results - last 24 hr 04/23/19 04/24/19 04/24/19 Range/Units 13:40 06:18 06:18 WBC 5.6 (4.0-10.0) x10^3/uL RBC 3.35 L (4.00-5.50) x10^6/uL Hgb 9.3 L (12.0-16.0) g/dL Hct 29.6 L (33.0-47.0) % MCV 88.4 (78.0-93.0) fL MCH 27.8 (26.0-32.0) pg MCHC 31.4 L (32.0-36.0) g/dL RDW Coeff of Sonny 13.6 (10.0-15.0) % Plt Count 343 (130-400) x10^3/uL Neut % (Auto) 51.9 (50.0-80.0) % Lymph % (Auto) 24.1 L (25.0-50.0) % [place] % (Auto) 13.5 H (2.0-11.0) % Eos % (Auto) 10.1 H (0.0-4.0) % Baso % (Auto) 0.4 (0.2-1.2) % Sodium 145 (69-191) mmol/L Potassium 3.5 (1.5-9.9) mmol/L Chloride 112 H (54-184) mmol/L Carbon Dioxide 24 (21-32) mmol/L Anion Gap 12.5 (10-20) mmol/L BUN 7 (7-18) mg/dL Creatinine 0.7 (0.55-1.02) mg/dL Est Cr Clr Drug Dosing 55.76 mL/min Estimated GFR (MDRD) > 60 Glucose 86 (74-106) mg/dL Calcium 7.7 L (8.5-10.1) mg/dL Vancomycin Trough 8.9 L (10.0-20.0) ug/mL CARLOS Results - Last 24 hrs: Microbiology 04/20/19 10:47 Aerobic Blood Culture - Preliminary Blood - Venous - Lab Draw NO GROWTH AFTER 3 DAYS Anaerobic Blood Culture - Preliminary NO GROWTH AFTER 3 DAYS 04/20/19 10:32 Aerobic Blood Culture - Preliminary Blood - Venous NO GROWTH AFTER 3 DAYS Anaerobic Blood Culture - Preliminary NO GROWTH AFTER 3 DAYS Med Orders - Current: Current Medications Acetaminophen (Tylenol) 650 mg PO Q4H PRN PRN Reason: Pain (Mild 1-3)/fever Last Admin: 04/21/19 07:20 Dose: 650 mg Amlodipine Besylate (Norvasc) 5 mg PO DAILY [facility] Last Admin: 04/23/19 07:39 Dose: 5 mg Aspirin (Aspirin) 81 mg PO DAILY [facility] Last Admin: 04/23/19 07:39 Dose: 81 mg Bacitracin (Bacitracin Oint 1 Gm) 1 dose TOP DAILY PRN PRN Reason: Wound healing RLE Last Admin: 04/22/19 08:31 Dose: 1 dose Enoxaparin Sodium (Lovenox) 40 mg SUBCUT Q24H [facility] Furosemide (Lasix) 20 mg IV ONETIME ONE Stop: 04/24/19 07:37 Piperacillin Sod/Tazobactam (Sod 3.375 gm/ Sodium Chloride) 100 mls @ 33 mls/ hr IV Q8H [facility] Last Admin: 04/24/19 02:31 Dose: 33 mls/hr Vancomycin HCl 1.25 gm/ Sodium (Chloride) 250 mls @ 200 mls/hr IV Q24H [facility] Last Admin: 04/23/19 14:35 Dose: 200 mls/hr Mineral Oil/White Petrolatum (Minerin Creme) 0 gm TOP BID PRN PRN Reason: Dryness Last Admin: 04/22/19 08:27 Dose: 1 applic Polyethylene Glycol (Miralax) 17 gm PO DAILY [facility] Last Admin: 04/23/19 07:39 Dose: 17 gm Prednisone (Prednisone) 5 mg PO DAILY [facility] Last Admin: 04/23/19 07:39 Dose: 5 mg Sodium Chloride (Saline Flush) 10 ml FLUSH ASDIRECTED PRN PRN Reason: Keep Vein Open Triamcinolone Acetonide (Triamcinolone Acetonide 0.1% Crm) 15 gm TOP BID [facility] Vancomycin HCl (Pharmacy To Dose - Vancomycin) 1 dose .XX ASDIRECTED [facility] Discontinued Medications Cefazolin Sodium (Ancef) 1 gm IVPUSH ONETIME ONE Stop: 04/20/19 11:27 Last Admin: 04/20/19 11:59 Dose: 1 gm Enoxaparin Sodium (Lovenox) 40 mg SUBCUT DAILY [facility] Last Admin: 04/21/19 07:19 Dose: 40 mg Enoxaparin Sodium (Lovenox) 40 mg SUBCUT Q12H [facility] Last Admin: 04/23/19 07:37 Dose: 40 mg Haloperidol Lactate (Haldol) 5 mg IV ONETIME ONE Stop: 04/23/19 18:45 Last Admin: 04/23/19 21:30 Dose: Not Given Haloperidol Lactate (Haldol) 5 mg IV ONETIME ONE Stop: 04/23/19 21:31 Last Admin: 04/23/19 21:30 Dose: 5 mg Sodium Chloride (Normal Saline) 1,000 mls @ 150 mls/hr IV ASDIRECTED [facility] Last Admin: 04/22/19 04:58 Dose: 150 mls/hr Vancomycin HCl 1 gm/ Sodium (Chloride) 250 mls @ 250 mls/hr IV Q24H [facility] Last Admin: 04/23/19 14:54 Dose: Not Given Piperacillin Sod/Tazobactam (Sod 3.375 gm/ Sodium Chloride) 100 mls @ 25 mls/ hr IV Q8H [facility] Last Admin: 04/22/19 05:03 Dose: 25 mls/hr Piperacillin Sod/Tazobactam (Sod 4.5 gm/ Sodium Chloride) 100 mls @ 200 mls/hr IV ONETIME ONE Stop: 04/21/19 13:59 Last Admin: 04/21/19 13:38 Dose: 200 mls/hr Piperacillin Sod/Tazobactam (Sod 3.375 gm/ Sodium Chloride) 100 mls @ 200 mls/ hr IV Q6H [facility] Last Admin: 04/22/19 08:30 Dose: Not Given Sodium Chloride (Normal Saline) 1,000 mls @ 125 mls/hr IV ASDIRECTED [facility] Last Admin: 04/23/19 00:48 Dose: 125 mls/hr Piperacillin Sod/Tazobactam (Sod 3.375 gm/ Sodium Chloride) 100 mls @ 200 mls/ hr IV Q6H [facility] Last Admin: 04/23/19 05:08 Dose: 200 mls/hr Influenza Virus Vaccine (Fluzone High-Dose 2019-20 Syringe) 180 mcg IM .ONCE ONE Stop: 04/20/19 12:46 Last Admin: 04/21/19 11:36 Dose: 180 mcg Lidocaine/Epinephrine (Xylocaine 1% With Epinephrine 1:100,000) 20 ml INFILT ONETIME ONE Stop: 04/22/19 07:44 Last Admin: 04/22/19 08:29 Dose: Not Given Methylprednisolone Sodium Succinate (Solu-Medrol) 125 mg IVPUSH ONETIME ONE Stop: 04/20/19 13:31 Last Admin: 04/20/19 14:06 Dose: 125 mg Pharmacy Consult (Consult To Pharmacy) 1 each .XX ASDIRECTED [facility] Potassium Chloride (Klor-Con M20) 40 meq PO ONETIME ONE Stop: 04/22/19 08:31 Last Admin: 04/22/19 08:42 Dose: 40 meq - Exam Quality Assessment: Reports: Urine Catheter, DVT Prophylaxis, Skin Breakdown General: Reports: Alert, Cooperative, No Acute Distress. Denies: Oriented Lungs: Reports: Clear to Auscultation, Normal Respiratory Effort Cardiovascular: Reports: Regular Rate, Regular Rhythm GI/Abdominal Exam: Normal Bowel Sounds, Soft, Non-Tender Skin: Reports: Warm Wound/Incisions: Reports: Healing Well, Dressing Dry and Intact, No Drainage, Erythema Improving Neurological: Reports: No New Focal Deficit *Q Meaningful Use (DIS) - VTE *Q VTE Mechanical Contraindications *Q: At Risk for Falls
[2019-04-24] MEDS ORDERED: Triamcinolone Acetonide 0.1% Crm 15 GM Tube TOP SCH (08:00)
[2019-04-24] MEDS ORDERED: Enoxaparin 40 MG/0.4 ML Syringe SUBCUT SCH (08:00)
[2019-04-24] MEDS: Polyethylene Glycol 3350 Powder 17 GM Packet PO SCH (08:02)
[2019-04-24] MEDS: predniSONE 5 MG Tab PO SCH (08:04)
[2019-04-24] MEDS: amLODIPine 5 MG Tab PO SCH (08:05)
[2019-04-24] MEDS: Aspirin 81 MG Tab.Chew PO SCH (08:05)
== END 2019-04-24 11:33 | disposition swing bed (61) | DRG 603 ==
LOC: VM.ED 10:09 → VM.MS 11:48
PROVIDERS: ADMIT Nurse Practitioner Family; ATTEND Nurse Practitioner Family
DX: L03.115 Cellulitis of right lower limb (principal); M62.82 Rhabdomyolysis; R41.0 Disorientation, unspecified; I10 Essential (primary) hypertension; H54.7 Unspecified visual loss; K59.09 Other constipation; M19.90 Unspecified osteoarthritis, unspecified site; Z66 Do not resuscitate; Z79.52 Long term (current) use of systemic steroids; M05.79 Rheumatoid arthritis with rheumatoid factor of multiple sites without organ or systems involvement; Z86.711 Personal history of pulmonary embolism; M85.89 Other specified disorders of bone density and structure, multiple sites; R53.1 Weakness; R47.81 Slurred speech; L29.9 Pruritus, unspecified; R53.83 Other fatigue; M54.2 Cervicalgia; L53.9 Erythematous condition, unspecified; G31.84 Mild cognitive impairment of uncertain or unknown etiology; E86.0 Dehydration; Z96.649 Presence of unspecified artificial hip joint; Z96.659 Presence of unspecified artificial knee joint; R29.701 NIHSS score 1; Z86.718 Personal history of other venous thrombosis and embolism; Z86.19 Personal history of other infectious and parasitic diseases; Z79.82 Long term (current) use of aspirin; Z79.899 Other long term (current) drug therapy
CPT/HCPCS: 36415; 70450; 71045; 72125; 80048; 80053; 80202; 81001; 82550; 83605; 83735; 84100; 84443; 84484; 85025; 85379; 85610; 86140; 87040; 90662; 93005; 93010; 93971-50; 96360; 97161-GP; 97165-GO; 97530-GP; 97535-GO; 99284-GF; 99285-25; A9270-GY; G0008; J0690; J1630; J1650; J1940; J2543; J2930; J3370; J7030; J7050

== ENCOUNTER 2019-05-25 09:39 | Emergency (ER) | payer MEDICARE, BC, MEDICAID ==
--- NOTE | 2019-05-25 10:00 | EDM.PDOC ---
ED HPI GENERAL MEDICAL PROBLEM - General Chief Complaint: Lower Extremity Injury/Pain Stated Complaint: ER Time Seen by Provider: 05/25/19 10:00 - History of Present Illness INITIAL COMMENTS - FREE TEXT/NARRATIVE: Pt presents with a multitude of complaints today. Pt with redness and itching to entire back. Right upper leg pain with ambulation or sitting up right at the hip, and right lower leg calf pain. PT has had the leg pain for the last month, has had two different US of right lower leg both negative, along with labs and no findings. Pt was hospitalized last month for right leg cellulitis that was resolved, at last appointment was dx with thrombophlebitis started on Bactrim ds and Eliquis. Right Upper Leg Pain Score (Numeric/FACES): 5 - Related Data Allergies Allergy/AdvReac Type Severity Reaction Status Date / Time No Known Allergies Allergy Verified 05/25/19 09:58 Home Meds: Home Meds predniSONE [Prednisone] 5 mg DAILY 05/20/15 [History] Aspirin 81 mg PO DAILY 04/20/19 [History] Acetaminophen [Tylenol] 650 mg PO Q4H PRN tablet 04/24/19 [Rx] Mineral Oil/Petrolatum,White [Minerin] 0 gm TOP BID PRN jar 04/24/19 [Rx] Polyethylene Glycol 3350 [MiraLAX] 17 gm PO DAILY packet 04/24/19 [Rx] Camphor/Menthol [Sarna Lotion] 0 ml TOP Q1H PRN bottle 05/03/19 [Rx] Apixaban [Eliquis] 2.5 mg PO DAILY 05/25/19 [History] Furosemide [Lasix] 10 mg PO DAILY 05/25/19 [History] Lisinopril 10 mg PO DAILY 05/25/19 [History] Sulfamethoxazole/Trimethoprim [Bactrim Ds Tablet] 1 each PO BID 05/25/19 [ History] hydrOXYzine HCl [Hydroxyzine HCl] 25 mg PO Q6H PRN 05/25/19 [History] Past Medical History HEENT History: Reports: Impaired Vision, Other (See Below) Other HEENT History: Wears glasses. 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: Musculoskeletal History: Reports: Arthritis Hematologic History: Reports: Other (See Below) Other Hematologic History: blood clots to legs - Infectious Disease History Infectious Disease History: Reports: MRSA, Shingles - Past Surgical History Musculoskeletal Surgical History: Reports: Hip Replacement, Joint Replacement, Knee Replacement Social & Family History - Family History Family Medical History: Noncontributory - Caffeine Use Caffeine Use: Reports: Coffee Other Caffeine Use: coke Caffeine Use Comment: Patient states very little Review of Systems - Review of Systems Review Of Systems: See Below Constitutional: Reports: No Symptoms Eyes: Reports: No Symptoms Ears: Reports: No Symptoms Nose: Reports: No Symptoms Mouth/Throat: Reports: No Symptoms Respiratory: Reports: No Symptoms Cardiovascular: Reports: No Symptoms Musculoskeletal: Reports: Other (right hip and calf pain ) Skin: Reports: Rash, Other (dermititis ) ED EXAM, GENERAL - Physical Exam Exam: See Below Free Text/Narrative:: pt given 25 mg Benadryl for itching, pt sleeping Discussed with Dr. Pierce will transfer to [facility] for further evaluation and treatment as needed. Exam Limited By: No Limitations General Appearance: Alert, WD/WN, No Apparent Distress Ears: Normal External Exam Nose: Normal Inspection Throat/Mouth: Normal Inspection Head: Atraumatic, Normocephalic Neck: Normal Inspection, Supple, Non-Tender, Full Range of Motion Respiratory/Chest: No Respiratory Distress, Lungs Clear Cardiovascular: Normal Peripheral Pulses Back Exam: Other (red itching, contact dermitis ) Extremities: Other (right hip pain with sitting, no deformity noted, right calf pain, ) Neurological: Alert, Oriented Course - Vital Signs Last Recorded V/S: Last Vital Signs Temp 36.9 C 05/25/19 09:40 Pulse 89 05/25/19 09:40 Resp 18 05/25/19 09:40 BP 125/54 L 05/25/19 09:40 Pulse Ox 97 05/25/19 09:40 - Orders/Labs/Meds Orders: Active Orders 24 hr Category Date Time Status Sodium Chloride 0.9% [Saline Flush] Med 05/25/19 10:05 Active 10 ml FLUSH ASDIRECTED PRN Peripheral IV Insertion Adult [OM.PC] Routine Oth 05/25/19 10:05 Ordered Medication Orders Sodium Chloride (Saline Flush) 10 ml FLUSH ASDIRECTED PRN PRN Reason: Keep Vein Open Labs: Laboratory Tests 05/25/19 05/25/19 05/25/19 Range/Units 10:12 10:12 10:12 WBC 5.8 (4.0-10.0) x10^3/uL RBC 3.53 L (4.00-5.50) x10^6/uL Hgb 10.0 L (12.0-16.0) g/dL Hct 31.9 L (33.0-47.0) % MCV 90.4 (78.0-93.0) fL MCH 28.3 (26.0-32.0) pg MCHC 31.3 L (32.0-36.0) g/dL RDW Coeff of Sonny 15.2 H (10.0-15.0) % Plt Count 289 (130-400) x10^3/uL Neut % (Auto) 54.9 (50.0-80.0) % Lymph % (Auto) 14.9 L (25.0-50.0) % [place] % (Auto) 10.7 (2.0-11.0) % Eos % (Auto) 19.2 H (0.0-4.0) % Baso % (Auto) 0.3 (0.2-1.2) % PT 10.8 (10.0-12.8) SEC INR 1.0 L (2.0-3.5) Sodium 139 (136-145) mmol/L Potassium 4.9 (3.5-5.1) mmol/L Chloride 106 (98-107) mmol/L Carbon Dioxide 23 (21-32) mmol/L Anion Gap 14.9 (10-20) mmol/L BUN 18 (7-18) mg/dL Creatinine 1.2 H (0.55-1.02) mg/dL Est Cr Clr Drug Dosing TNP Estimated GFR (MDRD) 43 Glucose 116 H (74-106) mg/dL Calcium 8.1 L (8.5-10.1) mg/dL Meds: Medications Generic Name Dose Route Start Last Admin Trade Name Freq PRN Reason Stop Dose Admin Sodium Chloride 10 ml 05/25/19 10:05 Saline Flush FLUSH ASDIRECTED PRN Keep Vein Open Discontinued Medications Generic Name Dose Route Start Last Admin Trade Name Freq PRN Reason Stop Dose Admin Diphenhydramine HCl 25 mg 05/25/19 10:06 05/25/19 10:14 Benadryl IVPUSH 05/25/19 10:07 25 mg ONETIME ONE Administration Departure - Departure Time of Disposition: 11:54 Disposition: DC/Tfer to [facility] 02 Condition: Fair Clinical Impression: Contact dermatitis, Right hip pain - Discharge Information Forms: ED Department Discharge, Interfacility Transfer EMTALA - My Orders Last 24 Hours: My Active Orders 05/25/19 10:05 Sodium Chloride 0.9% [Saline Flush] 10 ml FLUSH ASDIRECTED PRN Peripheral IV Insertion Adult [OM.PC] Routine - Assessment/Plan Last 24 Hours: My Active Orders 05/25/19 10:05 Sodium Chloride 0.9% [Saline Flush] 10 ml FLUSH ASDIRECTED PRN Peripheral IV Insertion Adult [OM.PC] Routine
[2019-05-25] MEDS ORDERED: Sodium Chloride 0.9% 10 ML Syringe FLUSH PRN (10:05)
[2019-05-25] MEDS ORDERED: diphenhydrAMINE 50 MG/ML SDV IVPUSH ONE (10:06)
[2019-05-25 10:33] LABS: CHLORIDE,CL 106 mmol/L (98-107); SODIUM,NA 139 mmol/L (136-145)
[2019-05-25 10:35] LABS: ANION GAP 14.9 mmol/L (10-20)
--- NOTE | 2019-05-25 11:36 | CR ---
[id number] RAD/RAD Pelvis 1V W 2V Right Hip EXAM: RAD Pelvis 1V W 2V Right Hip INDICATION: RIGHT HIP PAIN. COMPARISON: None. 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 The femoral stem of the left hip arthroplasty is not imaged in its entirety. Vascular stents overlie the left iliac vessels. IVC filter. Osteopenia. No acute fracture or dislocation is identified. IMPRESSION: 1. 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 Guy Cornelius MD 05/25/19 1133 Thank you for allowing us to participate in the care of your patient.
[2019-05-25 12:14] VITALS: BP 118/68; PULSE 78
== END 2019-05-25 13:06 | disposition short-term general hospital (02) ==
LOC: VM.ED 09:39
DX: L25.9 Unspecified contact dermatitis, unspecified cause (principal); M25.551 Pain in right hip; M79.661 Pain in right lower leg; I10 Essential (primary) hypertension; M19.90 Unspecified osteoarthritis, unspecified site; Z86.711 Personal history of pulmonary embolism; Z86.718 Personal history of other venous thrombosis and embolism; Z79.82 Long term (current) use of aspirin; Z79.01 Long term (current) use of anticoagulants; Z79.899 Other long term (current) drug therapy
CPT/HCPCS: 36415; 80048; 85025; 85610; 96374; 99283-GF; 99284-25; J1200

== ENCOUNTER 2022-02-12 22:10 | Emergency (ER) | payer MEDICARE, BC, MEDICAID ==
[2022-02-12] MEDS ORDERED: Ondansetron 4 MG/2 ML SDV IVPUSH ONE (22:36)
[2022-02-12] MEDS ORDERED: HYDROmorphone 1 MG/ML Syringe IVPUSH PRN (23:28)
[2022-02-12 23:46] VITALS: PULSE 81
[2022-02-12 23:51] LABS: ANION GAP 15.4 mmol/L (5-15); CHLORIDE,CL 103 mmol/L (98-107); ESTIMATED GFR 49 mL/min (>=60); SODIUM,NA 142 mmol/L (136-145)
[2022-02-13 00:53] VITALS: BP 104/52
== END 2022-02-13 01:23 | disposition short-term general hospital (02) ==
LOC: VM.ED 22:10
DX: S72.401A Unspecified fracture of lower end of right femur, initial encounter for closed fracture (principal); I10 Essential (primary) hypertension; Z79.82 Long term (current) use of aspirin; Z79.01 Long term (current) use of anticoagulants; Z20.822 Contact with and (suspected) exposure to COVID-19; W18.30XA Fall on same level, unspecified, initial encounter
CPT/HCPCS: 36415; 73560-RT; 80053; 85025; 85610; 96374; 96375; 99284; 99285-25; J1170; J2405; U0002

== ENCOUNTER 2023-09-02 00:16 | Emergency (ER) | payer MEDICARE, BC, MEDICAID ==
[2023-09-02] MEDS ORDERED: Naloxone 0.4 MG/ML SDV IVPUSH PRN (00:51)
[2023-09-02 01:03] LABS: BASOPHILS PERCENT AUTO 0.3 % (0.2-1.2); EOSINOPHILS ABSOLUTE AUTO 0.3 x10^3/uL (0.0-0.5); EOSINOPHILS PERCENT AUTO 4.9 % (0.0-4.0); HEMATOCRIT 35.1 % (33.0-47.0); IMMATURE GRAN ABSOLUTE AUTO 0.03 x10^3/uL (0.00-0.07); LYMPHOCYTES ABSOLUTE AUTO 1.5 x10^3/uL (1.0-4.8); MEAN CORPUSCULAR HEMOGLOBIN 30.5 pg (26.0-32.0); MEAN CORPUSCULAR HGB CONC 31.3 g/dL (32.0-36.0); MEAN CORPUSCULAR VOLUME 97.2 fL (78.0-93.0); MONOCYTES ABSOLUTE AUTO 0.7 x10^3/uL (0.0-0.8); MONOCYTES PERCENT AUTO 10.7 % (2.0-11.0); NEUTROPHILS ABSOLUTE AUTO 4.4 x10^3/uL (1.8-7.7); NEUTROPHILS PERCENT AUTO 62.7 % (50.0-80.0); PLATELET COUNT,PLT 268 x10^3/uL (130-400); RED BLOOD CELL COUNT 3.61 x10^6/uL (4.00-5.50); WHITE BLOOD CELL COUNT,WBC 6.9 x10^3/uL (4.0-10.0)
[2023-09-02] MEDS: Ondansetron 4 MG/2 ML SDV IVPUSH ONE (01:05)
[2023-09-02] MEDS: fentaNYL 50 MCG/ML SDV IVPUSH ONE ×2 (01:07→02:26)
[2023-09-02 01:13] LABS: INR 2.7 (0.9-1.1); PROTHROMBIN TIME 25.8 SEC (8.9-11.5)
[2023-09-02 01:15] LABS: A/G RATIO 0.97; ALANINE AMINOTRANSFERASE,ALT 483 U/L (14-59); ALBUMIN 3.4 g/dL (3.4-5.0); ALKALINE PHOSPHATASE 282 U/L (46-116); ASPARTATE AMNIOTRANSFERASE,AST 178 U/L (15-37); BILIRUBIN TOTAL 0.2 mg/dL (0.2-1.0); BLOOD UREA NITROGEN,BUN 22 mg/dL (7-18); CALCIUM 9.3 mg/dL (8.5-10.1); CARBON DIOXIDE,CO2 25 mmol/L (21-32); CHLORIDE,CL 100 mmol/L (98-107); CREATININE 1.6 mg/dL (0.55-1.02); GLUCOSE RANDOM 113 mg/dL (70-99); POTASSIUM,K 5.3 mmol/L (3.5-5.1); PROTEIN TOTAL,TP 6.9 g/dL (6.4-8.2); SODIUM,NA 137 mmol/L (136-145)
[2023-09-02 01:16] LABS: ANION GAP 17.3 mmol/L (5-15); ESTIMATED GFR 31 mL/min (>=60)
[2023-09-02] MEDS: Take Home: Acetaminophen/oxyCODONE 325-5 MG, 5 Tab Pack PO ONE (02:45)
== END 2023-09-02 02:52 | disposition home or self-care (01) ==
LOC: VM.ED 00:16
DX: S52.032A Displaced fracture of olecranon process with intraarticular extension of left ulna, initial encounter for closed fracture (principal); S01.112A Laceration without foreign body of left eyelid and periocular area, initial encounter; S59.902A Unspecified injury of left elbow, initial encounter; S09.90XA Unspecified injury of head, initial encounter; R41.0 Disorientation, unspecified; Z79.82 Long term (current) use of aspirin; Z79.899 Other long term (current) drug therapy; Z79.01 Long term (current) use of anticoagulants; W19.XXXA Unspecified fall, initial encounter; Y92.129 Unspecified place in nursing home as the place of occurrence of the external cause
CPT/HCPCS: 12011; 36415; 70450; 71045; 72170; 73070; 80053; 85025; 85610; 96374; 96375; 96376; 99283; 99285; A9270; J2405; J3010

== ENCOUNTER 2024-11-07 05:03 | Emergency (ER) | payer MEDICARE, BC, MEDICAID ==
[2024-11-07] MEDS ORDERED: Sodium Chloride 0.9% 10 ML Syringe FLUSH PRN (05:17)
[2024-11-07] MEDS: Sodium Chloride 0.9% 1,000 ML IV ONE (05:30)
[2024-11-07 05:32] LABS: BASOPHILS PERCENT AUTO 0.2 % (0.2-1.2); EOSINOPHILS PERCENT AUTO 0.3 % (0.0-4.0); HEMATOCRIT 42.7 % (33.0-47.0); HEMOGLOBIN 13.5 g/dL (12.0-16.0); IMMATURE GRAN ABSOLUTE AUTO 0.05 x10^3/uL (0.00-0.07); LYMPHOCYTES ABSOLUTE AUTO 0.4 x10^3/uL (1.0-4.8); LYMPHOCYTES PERCENT AUTO 2.8 % (25.0-50.0); MEAN CORPUSCULAR HEMOGLOBIN 30.3 pg (26.0-32.0); MEAN CORPUSCULAR HGB CONC 31.6 g/dL (32.0-36.0); MEAN CORPUSCULAR VOLUME 95.7 fL (78.0-93.0); MONOCYTES ABSOLUTE AUTO 0.5 x10^3/uL (0.0-0.8); MONOCYTES PERCENT AUTO 3.1 % (2.0-11.0); NEUTROPHILS ABSOLUTE AUTO 14.1 x10^3/uL (1.8-7.7); NEUTROPHILS PERCENT AUTO 93.3 % (50.0-80.0); PLATELET COUNT,PLT 350 x10^3/uL (130-400); RED BLOOD CELL COUNT 4.46 x10^6/uL (4.00-5.50); WHITE BLOOD CELL COUNT,WBC 15.1 x10^3/uL (4.0-10.0)
[2024-11-07 05:48] LABS: INR 0.9 (0.9-1.1); PROTHROMBIN TIME 9.8 SEC (9.6-12.0); PTT,PARTIAL THROMBOPLSTIN TIME 24.4 SEC (23.5-33.2)
[2024-11-07 05:58] LABS: A/G RATIO 1.06; ALANINE AMINOTRANSFERASE,ALT 20 U/L (14-59); ALBUMIN 3.7 g/dL (3.4-5.0); ALKALINE PHOSPHATASE 150 U/L (46-116); ANION GAP 20.7 mmol/L (5-15); ASPARTATE AMNIOTRANSFERASE,AST 27 U/L (15-37); BILIRUBIN TOTAL 0.4 mg/dL (0.2-1.0); BLOOD UREA NITROGEN,BUN 30 mg/dL (7-18); CALCIUM 9.3 mg/dL (8.5-10.1); CARBON DIOXIDE,CO2 20 mmol/L (21-32); CHLORIDE,CL 104 mmol/L (98-107); ESTIMATED GFR 24 mL/min (>=60); GLUCOSE RANDOM 121 mg/dL (70-99); MAGNESIUM 2.4 mg/dL (1.8-2.4); POTASSIUM,K 3.7 mmol/L (3.5-5.1); PRO B-TYPE NATRIUR PEPT,BNPPRO 1101 pg/mL (<=450); PROTEIN TOTAL,TP 7.2 g/dL (6.4-8.2); SODIUM,NA 141 mmol/L (136-145)
[2024-11-07 06:04] LABS: APPEARANCE,URINE SLIGHTLY CLOUDY (CLEAR); BILIRUBIN,URINE NEGATIVE (NEGATIVE); COLOR,URINE YELLOW (YELLOW); GLUCOSE,URINE NEGATIVE (NEGATIVE); KETONES,URINE NEGATIVE (NEGATIVE); LEUKOCYTE ESTERASE,URINE SMALL (NEGATIVE); NITRITE,URINE NEGATIVE (NEGATIVE); OCCULT BLOOD,URINE MODERATE (NEGATIVE); PH,URINE 5.5 (5.0-8.0); PROTEIN,URINE 30 mg/dL (NEGATIVE); UROBILINOGEN,URINE 0.2 EU/dL (0.2)
[2024-11-07 06:16] LABS: BACTERIA,URINE MODERATE /HPF (NOT SEEN); RBC,URINE 0-5 /HPF (NOT SEEN); SQUAMOUS EPITHELIAL CELLS,UR RARE /HPF (NOT SEEN); WBC,URINE 0-5 /HPF (NOT SEEN)
[2024-11-07 06:17] LABS: HYALINE CASTS,URINE RARE; WBC CASTS,URINE RARE /HPF (NOT SEEN)
[2024-11-07] MEDS: cefTRIAXone 2 GM Vial IVPUSH ONE (06:30)
[2024-11-07] MEDS: Azithromycin 500 MG in Sodium Chloride 0.9% 250 ML IV ONE (06:36)
[2024-11-07] MEDS: Sodium Chloride 0.9% 500 ML IV ONE (06:51)
[2024-11-07] MEDS: Sodium Chloride 0.9% 1,000 ML IV SCH (07:44)
[2024-11-07] MEDS: Norepinephrine Bit/D5W Premix 250 ML IV SCH (07:50)
[2024-11-07 09:40] VITALS: BP 116/59; PULSE 108
== END 2024-11-07 09:26 | disposition short-term general hospital (02) ==
LOC: VM.ED 05:03
DX: J18.9 Pneumonia, unspecified organism (principal); N17.9 Acute kidney failure, unspecified; N30.00 Acute cystitis without hematuria; S51.811A Laceration without foreign body of right forearm, initial encounter; R93.0 Abnormal findings on diagnostic imaging of skull and head, not elsewhere classified; I10 Essential (primary) hypertension; Z79.899 Other long term (current) drug therapy; Z79.82 Long term (current) use of aspirin; W19.XXXA Unspecified fall, initial encounter
CPT/HCPCS: 36415; 71250; 74176; 80053; 81001; 83605; 83735; 83880; 84484; 85025; 85610; 85730; 87040; 87086; 93005; 96361; 96365; 96366; 96367; 96375; 99285; J0456; J0696; J7030; 70450

== ENCOUNTER 2025-05-29 00:27 | Emergency (ER) | payer MEDICARE, BC, MEDICAID ==
[2025-05-29 00:56] LABS: PLATELET COUNT,PLT 264 x10^3/uL (130-400); RED BLOOD CELL COUNT 2.84 x10^6/uL (4.00-5.50)
[2025-05-29 00:57] LABS: WHITE BLOOD CELL COUNT,WBC 21.0 x10^3/uL (4.0-10.0)
[2025-05-29 01:03] LABS: INR 0.9 (0.9-1.1)
[2025-05-29 01:08] LABS: A/G RATIO 0.82; ALANINE AMINOTRANSFERASE,ALT 10 U/L (14-59); ASPARTATE AMNIOTRANSFERASE,AST 15 U/L (15-37); BILIRUBIN TOTAL 0.3 mg/dL (0.2-1.0); BLOOD UREA NITROGEN,BUN 29 mg/dL (7-18); CARBON DIOXIDE,CO2 22 mmol/L (21-32); CHLORIDE,CL 106 mmol/L (98-107); CREATININE 1.7 mg/dL (0.55-1.02); GLUCOSE RANDOM 109 mg/dL (70-99); POTASSIUM,K 3.8 mmol/L (3.5-5.1); PROTEIN TOTAL,TP 6.0 g/dL (6.4-8.2); SODIUM,NA 140 mmol/L (136-145)
[2025-05-29 01:10] LABS: BAND PERCENT MAN 5 % (0-6); LYMPHOCYTES ABSOLUTE MAN 0.4 x10^3/uL (1.0-4.8); LYMPHOCYTES PERCENT MAN 2 % (25-50); MONOCYTES ABSOLUTE MAN 0.8 x10^3/uL (0.0-0.8); MONOCYTES PERCENT MAN 4 % (2-11); NEUTROPHILS ABSOLUTE MAN 19.7 x10^3/uL (1.8-7.7); PLATELET COUNT ESTIMATE ADEQUATE; SEG NEUTROPHILS PERCENT MAN 89 % (50-80)
[2025-05-29 01:11] LABS: ESTIMATED GFR 29 mL/min (>=60)
[2025-05-29 01:25] VITALS: PULSE 112
[2025-05-29 01:41] LABS: APPEARANCE,URINE CLOUDY (CLEAR); GLUCOSE,URINE NEGATIVE (NEGATIVE); OCCULT BLOOD,URINE SMALL (NEGATIVE)
[2025-05-29 01:49] LABS: SQUAMOUS EPITHELIAL CELLS,UR FEW /HPF (NOT SEEN)
[2025-05-29] MEDS: Lactated Ringers 1,000 ML IV SCH (03:00)
[2025-05-29] MEDS: Norepinephrine Bit/D5W Premix 4 MG/250 ML BAG IV SCH (03:45)
[2025-05-29 04:33] VITALS: BP 95/51
== END 2025-05-29 05:02 | disposition short-term general hospital (02) ==
LOC: SUPCPDRO 00:27 → VM.ED 00:27
DX: N30.00 Acute cystitis without hematuria (principal); I95.9 Hypotension, unspecified; I10 Essential (primary) hypertension; Z79.82 Long term (current) use of aspirin; Z79.899 Other long term (current) drug therapy
CPT/HCPCS: 36415; 71045; 74176; 80053; 81001; 82274; 83605; 85025; 85610; 87040; 87077; 87086; 87088; 87186; 87428-QW; 96361; 96365; 96367; 96375; 99284; 99285-25; A9270-GY; J0696; J2543; J7030; J7120